=== PATIENT | male | born 1970 | race Two or more races ===

== ENCOUNTER 2024-05-21 04:14 | Inpatient (IN) | payer MEDICAID, OTHER ==
[2024-05-21] VITALS (8 sets, daily range): BP systolic 95–112; BP diastolic 50–68; PULSE 80–103; RESP 15–18; TEMP 98.2; O2SAT 87–95
[~2024-05-21] VITALS: Ht 157.5 cm; Wt 113.5 kg
--- NOTE | 2024-05-21 04:42 | ED.PDOC ---
GI ASSESSMENT HPI Comments 54-year-old male came to ER due to GI bleed. Patient has history of diabetes. Patient has been having epigastric abdominal pain for the past few days, and yesterday had an episode of melena. Patient woke up earlier today feeling nauseated, and started throwing up bright red blood, and he felt dizzy and light headed and he passed out in the bathroom floor. No prior history of GI bleed. Blood pressure is 58/25 mmHg Chief Complaint: GI bleed Time Seen by MD: 04:41 Reviewed Notes: Nurses Notes Allergies: Coded Allergies: NO KNOWN ALLERGIES (Unverified , 05/21/24) Home Meds Reported Medications Ergocalciferol (Vitamin D) 50,000 Unit Cap, 1 CAP PO QWEEKLY 05/21/24 Rosuvastatin Calcium (Rosuvastatin Calcium) 10 Mg Tab, 1 TAB PO 05/21/24 Information Source: Patient, Spouse Mode of Arrival: Wheelchair Timing: Hours Duration: Since onset Prehospital treatment: None Quality: Aching Vomitus: Bright Red Bood Stool: Black Severity: Moderate Recent: None Recent Hx of: Diabetes Pain Location: Epigastric Modifying Factors: Nothing Associated sign and symptoms: Nausea, Vomiting, Hematemesis, Melena, Abdominal Pain, Blood in Stool, Faintness Past Medical History PAST MEDICAL HISTORY: DM Surgical History: Denies all surgeries Family History Family History: Reviewed,noncontributory to illness Social History Smoker: Non-Smoker Alcohol: Denies ETOH Use Drugs: Denies Drug Use Lives In: Home Constitutional: denies: chills, diaphoresis, fatigue, fever, malaise, sweats, weakness, others EENTM: denies: blurred vision, double vision, ear bleeding, ear discharge, ear drainage, ear pain, ear ringing, eye pain, eye redness, hearing loss, mouth pain, mouth swelling, nasal discharge, nose bleeding, nose congestion, nose pain, photophobia, tearing, throat pain, throat swelling, voice changes, others Respiratory: denies: cough, hemoptysis, orthopnea, SOB at rest, shortness of breath, SOB with excertion, stridor, wheezing, others Cardiovascular: denies: chest pain, dizzy spells, diaphoresis, Dyspnea on exertion, edema, irregular heart beat, left arm pain, lightheadedness, palpitations, PND, syncope, others Gastrointestinal: reports: abdominal pain, hematemesis, melena, nausea, vomiting; denies: abdomen distended, blood streaked bowels, constipated, diarrhea, dysphagia, difficulty swallowing, poor appetite, poor fluid intake, rectal bleeding, rectal pain, others Genitourinary: denies: burning, dysuria, flank pain, frequency, hematuria, incontinence, penile discharge, penile sore, pain, testicle pain, testicle swelling, urgency, others Neurological: reports: dizziness, fainting; denies: headache, left sided numbness, left sided weakness, numbness, paresthesia, pre-existing deficit, right sided numbness, right sided weakness, seizure, speech problems, tingling, tremors, weakness, others Musculoskeletal: denies: back pain, gout, joint pain, joint swelling, muscle pain, muscle stiffness, neck pain, others Integumetry: denies: bruises, change in color, change in hair/nails, dryness, laceration, lesions, lumps, rash, wounds, others Allergic/Immunocompromised: denies: Difficulty Healing, Frequent Infections, Hives, Itching, others Hematologic/Lymphatic: denies: anemia, blood clots, easy bleeding, easy bruising, swollen glands, others Endocrine: denies: excessive hunger, excessive sweating, excessive thirst, excessive urination, flushing, intolerance to cold, intolerance to heat, unexplained weight gain, unexplained weight loss, others Psychiatric: denies: anxiety, bipolar disorder, depression, hopeless, panic disorder, schizophrenia, sleepless, suicidal, others Physical Exam General Appearance: No Apparent Distress, Normal HEENT: Normal ENT Inspection, Pharynx Normal, TMs Normal Neck: Full Range of Motion, Non-Tender, Normal, Normal Inspection Respiratory: Chest Non-Tender, Lungs Clear, No Accessory Muscle Use, No Respiratory Distress, Normal Breath Sounds Cardiovascular: No Edema, No JVD, No Murmur, No Gallop, Normal Peripheral Pulses, Regular Rate/Rhythm Breast Exam: Deferred Gastrointestinal: No Organomegaly, Non Tender, No Pulsatile Mass, Normal Bowel Sounds, Soft Genitalia: Deferred Pelvic: Deferred Rectal: Deferred Extremities: No calf tenderness, Normal capillary refill, Normal inspection, Normal range of motion, Non-tender, No pedal edema Musculoskeletal : Apperance: Normal Neurologic: Alert, inclusion special educator II-XII nml as Tested, No Motor Deficits, Normal Affect, Normal Mood, No Sensory Deficits Cerebellar Function: Normal Reflexes: Normal Skin: Dry, Normal Color, Warm Lymphatic: No Adenopathy Was a procedure done? Was a procedure done?: No GI differential Dx Differential Diagnosis: Diverticular disease, Gastritis/PUD, Gastroenteritis, GI hemorrhage, Pancreatitis, UTI, Urolithiasis, Electrolyte Imbalance, Hypovolemia, Anemia X-Ray, Labs, Meds, VS Vital Signs Date Time Temp Pulse Resp B/P (MAP) Pulse Ox O2 Delivery O2 Flow Rate FiO2 05/21/24 06:30 82 17 101/55 (70) 97 05/21/24 06:10 98.0 74 16 98/59 (72) 96 98.0 05/21/24 05:55 87/48 05/21/24 05:50 97.7 78 12 88/45 (59) 96 97.7 05/21/24 05:50 88/45 05/21/24 05:43 81/47 05/21/24 05:20 Room Air* 0 21 05/21/24 05:19 97.4 78 18 74/27 (43) 96 97.4 05/21/24 04:40 82 05/21/24 04:30 95.5 57 14 58/25 (36) 99 Lab Test 05/21/24 04:50 05/21/24 04:33 Range/Units White Blood Count 11.0 H 4.4-10.8 10^3/uL Red Blood Count 4.48 L 4.5-5.90 10^6/uL Hemoglobin 12.9 L 13.5-17.5 g/dL Hematocrit 38.8 L 41.0-53.0 % Mean Corpuscular Volume 86.6 80.0-100.0 fL Mean Corpuscular Hemoglobin 28.8 28.0-32.0 pg Mean Corpuscular Hemoglobin Concent 33.2 32.0-36.0 g/dL Red Cell Distribution Width 13.6 11.8-14.3 % Platelet Count 275 140-450 10^3/uL Mean Platelet Volume 7.7 6.9-10.8 fL Neutrophils (%) (Auto) 63.9 37.0-80.0 % Lymphocytes (%) (Auto) 29.0 10.0-50.0 % Monocytes (%) (Auto) 6.0 0.0-12.0 % Eosinophils (%) (Auto) 0.8 0.0-7.0 % Basophils (%) (Auto) 0.3 0.0-2.0 % Neutrophils # (Auto) 7.0 1.6-8.6 10 ^3/uL Lymphocytes # (Auto) 3.2 0.4-5.4 10 ^3/uL Monocytes # (Auto) 0.7 0-1.3 10 ^3/uL Eosinophils # (Auto) 0.1 0-0.8 10 ^3/uL Basophils # (Auto) 0 0-0.2 10 ^3/uL Nucleated Red Blood Cells 0.0 % Prothrombin Time 12.0 H 9.3-11.8 sec Prothrombin Time INR 1.14 0.9-1.15 Activated Partial Thromboplast Time 21.7 L 24.5-34.5 SEC Sodium Level 140 136-145 mmol/L Potassium Level 4.1 3.5-5.1 mmol/L Chloride Level 108 H 98-107 mmol/L Carbon Dioxide Level 24 20-31 mmol/L Anion Gap 8 5-15 Blood Urea Nitrogen 32 H 9-23 mg/dL Creatinine 1.07 0.700-1.30 mg/dL Glomerular Filtration Rate Calc 83 >90 mL/min BUN/Creatinine Ratio 29.9 H 10.0-20.0 Serum Glucose 221 H 74-106 mg/dL Hemoglobin A1c 5.5 <5.7 % A1C Calcium Level 9.4 8.7-10.4 mg/dL Total Bilirubin 0.6 0.2-1.0 mg/dL Aspartate Amino Transferase (AST) 11 L 13-40 U/L Alanine Aminotransferase (ALT) 24 7-40 U/L Alkaline Phosphatase 75 46-116 U/L Total Protein 6.4 5.7-8.2 g/dL Albumin 3.9 3.2-4.8 g/dL Lipase 30 12-53 U/L POC Glucose 193 H 70-106 mg/dl Current Medications Medications (Trade) Dose Ordered Sig/Herbert Route Start Time Stop Time Status Last Admin Sodium Chloride 1,000 ml @ 1,000 mls/hr Q1H ONCE IVB 05/21/24 04:45 05/21/24 05:44 DC 05/21/24 05:11 Ondansetron HCl (Zofran) 8 mg ONCE ONCE IV 05/21/24 04:45 05/21/24 04:46 DC 05/21/24 05:14 Pantoprazole Sodium (Protonix) 40 mg ONCE ONCE IV 05/21/24 04:45 05/21/24 04:46 DC 05/21/24 05:14 Sodium Chloride 1,000 ml @ 1,000 mls/hr Q1H ONCE IV 05/21/24 04:45 05/21/24 05:44 DC 05/21/24 05:11 Norepinephrine Bitartrate 250 ml @ 3.75 mls/hr Q24H IV 05/21/24 05:30 05/21/24 05:43 Time of 1ST Reevaluation: 04:36 Reevaluation 1ST: Unchanged Time of 2ND Reevaluation: 06:00 Reevaluation 2ND: Improved Patient Education/Counseling: Diagnosis, Treatment Family Education/Counseling: Diagnosis, Treatment Sepsis Sepsis Reasesment Focused Exam Sepsis focused exam: focus exam completed Departure 1 Departure Time of Disposition: 06:00 Impression: Primary Impression: GI bleed Additional Impression: Hypotension Disposition: ADMITTED INPATIENT Admit to: ICU Condition: Critical Critical Care Note Critical Care Time?: Yes (45 min-critical care time only) Critical care comment: Hypotension, GI bleed Total critical care time: Approximately 36 minutes Due to a high probability of clinically significant, life threatening deterioration, the patient required my highest level of preparedness to intervene emergently and I personally spent this critical care time directly and personally managing the patient. This critical care time included obtaining a history; examining the patient; pulse oximetry; ordering and review of studies; arranging urgent treatment with development of a management plan; evaluation of patient's response to treatment; frequent reassessment; and, discussions with other providers. This critical care time was performed to assess and manage the high probability of imminent, life-threatening deterioration that could result in multi-organ failure. It was exclusive of separately billable procedures and treating other patients. Stability Stability form required: No Heart Score Heart Score: Heart Score Response (Comments) Value History N/A 0 EKG N/A 0 Age N/A 0 Risk Factors N/A 0 Troponin N/A 0 Total 0 I personally scribed for DONIS MUÑOZ MD ([email or web address]) on 05/21/24 at 04:42. Electronically submitted by Aiden Mir ([email or web address] I personally scribed for DONIS MUÑOZ MD ([email or web address]) on 05/21/24 at 05:00. Electronically submitted by Aiden Mir ([email or web address]). DONIS MUÑOZ MD May 21, 2024 04:42
[2024-05-21] MEDS: SODIUM CHLORIDE 0.9% 1,000 ML IVB ONE (05:11)
[2024-05-21] MEDS: SODIUM CHLORIDE 0.9% 1,000 ML IV ONE (05:11)
[2024-05-21 05:13] LABS: Basophils # (auto) 0 10 ^3/uL (0-0.2); Basophils % (auto) 0.3 % (0.0-2.0); Eosinophils # (auto) 0.1 10 ^3/uL (0-0.8); Eosinophils % (auto) 0.8 % (0.0-7.0); Hematocrit 38.8 % (41.0-53.0); Hemoglobin 12.9 g/dL (13.5-17.5); Lymphocytes # (auto) 3.2 10 ^3/uL (0.4-5.4); Mean Corpuscular Hemoglobin 28.8 pg (28.0-32.0); Mean Corpuscular Hgb Conc. 33.2 g/dL (32.0-36.0); Mean Corpuscular Volume 86.6 fL (80.0-100.0); Monocytes # (auto) 0.7 10 ^3/uL (0-1.3); Neutrophils % (auto) 63.9 % (37.0-80.0); Platelet Count (auto) 275 10^3/uL (140-450); Red Blood Cells 4.48 10^6/uL (4.5-5.90); Red Cell Distribution Width 13.6 % (11.8-14.3)
[2024-05-21] MEDS: ONDANSETRON HCL 4 MG/2 ML VIAL IV ONE (05:14)
[2024-05-21] MEDS: PANTOPRAZOLE 40 MG/10 ML VIAL INJ IV ONE (05:14)
[2024-05-21 05:25] LABS: Alanine Aminotransferase 24 U/L (7-40); Albumin 3.9 g/dL (3.2-4.8); Alkaline Phosphatase 75 U/L (46-116); Anion Gap 8 (5-15); BUN/Creatinine Ratio 29.9 (10.0-20.0); Bilirubin, Total 0.6 mg/dL (0.2-1.0); Calcium 9.4 mg/dL (8.7-10.4); Carbon Dioxide 24 mmol/L (20-31); INR 1.14 (0.9-1.15); Lipase 30 U/L (12-53); Partial Thromboplastin Time 21.7 SEC (24.5-34.5); Potassium 4.1 mmol/L (3.5-5.1); Sodium 140 mmol/L (136-145); Total Protein 6.4 g/dL (5.7-8.2)
[2024-05-21] MEDS: NOREPINEPHRINE 8 MG/250ML KIT 250 ML IV SCH (05:43)
[2024-05-21] MEDS: IOHEXOL 300 MG/ML 100ML BOTTLE IJ ONE (05:44)
[2024-05-21 06:00] LABS: Blood Urea Nitrogen 32 mg/dL (9-23); Chloride 108 mmol/L (98-107); Glucose 221 mg/dL (74-106)
[2024-05-21 06:16] LABS: Aspartate Aminotransferase 11 U/L (13-40)
[2024-05-21] MEDS ORDERED: DEXTROSE (50%) 50ML SYRG IV PRN (06:45)
[2024-05-21] MEDS ORDERED: ONDANSETRON HCL 4 MG/2 ML VIAL IV PRN (06:45)
[2024-05-21] MEDS ORDERED: MORPHINE SULFATE INJ 2 MG/ml SYRG IV PRN (06:45)
[2024-05-21] MEDS ORDERED: HYDROcodone-ACET 5/325MG TAB PO PRN (06:45)
[2024-05-21] MEDS: SODIUM CHLORIDE 0.9% 1,000 ML IV SCH (06:55)
--- NOTE | 2024-05-21 07:03 | DVH ---
Exam: CT CT AB PEL WITH IV CON ONLY History: abd pain, vomiting blood Comparison Study: None available at time of dictation. TECHNIQUE: A digital it support engineer image was obtained. During the uneventful, intravenous administration of c ontrast material, multislice data acquisition was obtained through the abdomen and pelvis. The data s et was subsequently reconstructed into axial images. Images were reviewed on a work station using a c ombination of axial and multiplanar using a variety of window levels and settings. RADIATION DOSE: DLP 26.0 mGy.cm; CTDI 1652.5 mGy. FINDINGS: Lung Bases: There is a spiculated nodule in the right lower lung measuring 8 mm ( series 3 image ). There is a nodular opacity adjacent to the fissure measuring 5 mm May may represent a intrapulmonary lymph node. There is a pulmonary nodule in the right lower lung measuring 4 mm ( series 3, image 19). There are multiple nodules in the left lower lung measuring up to 9 mm ( series 3, image 34, 30 ). B ibasilar atelectasis. Liver: The liver is normal in size. No focal lesions. Normal hepatic vascular enhancement. Gallbladder and Biliary Tree: Unremarkable Spleen: Unremarkable Pancreas: The pancreas is normal in appearance without focal lesions or abnormal enhancement. Adrenal Glands: Unremarkable Kidneys: There is a peripherally calcified low-density lesion in the right kidney, lower pole measuri ng 1.5 cm. Bladder: Unremarkable Bowel: Gastric distention with debris. Focal wall thickening of the distal stomach. Small bowel and c olon are normal in caliber and distribution. The appendix is not visualized; however, no secondary f indings of acute appendicitis identified. Ascites: Absent Lymphadenopathy: No mesenteric, retroperitoneal or periportal lymphadenopathy. Abdominal Wall and Mesentery: Unremarkable. Vasculature: The visualized abdominal aorta is normal in size and caliber. Abdominal and pelvic vess els demonstrate normal enhancement. Pelvic Organs: Unremarkable Musculoskeletal: No aggressive focal bony lesions, acute fractures or dislocation. Soft tissues: Unremarkable. IMPRESSION: Gastric distention with debris. Focal wall thickening of the distal stomach. Recommend further eval uation with endoscopy. Multiple nonspecific bilateral pulmonary nodules measuring up to 8 mm in the right lower lung and 9 m m in the left lower lung. Recommend further evaluation with dedicated CT chest. All CT scans at this medical facility are performed using dose modulation techniques as appropriate t o a performed exam including the following: Automated exposure control was utilized; adjustment of th e MA and/or KV according to patient size; and use of iterative reconstruction technique.
--- NOTE | 2024-05-21 07:38 | DVHHP2 ---
History of Present Illness Reason for Visit: Epigastric, abdominal pain, weakness, hypotensive, and hematemesis History of Present Illness Talon Roland is a 54-year-old male with past medical history of diabetes who presents to the ED today for epigastric, abdominal pain, hematemesis x3, weakness, and hypotension x1 day. Patient reports that his epigastric pain is pressure-like intermittent and 7/10. Patient reports that he has been going to see his primary care physician for the last 4 years about his abdominal discomfort and has had an EGD labs and workup with no abnormal results. Patient reports that this morning he was walking to the restroom sat on the toilet and noticed that there was dark black stool coming out he suddenly felt dizzy and lightheaded. He states that he lost consciousness fell and hit his head then came to called out for his and his daughter, which then his daughter brought him to the ED. patient states that he is compliant with all his medications he also states that he is borderline diabetic. Patient reports that he does not feel like there is a tear in his abdomen. Patient denies smoking, drinking, illicit drug use, chest pain, shortness of breath, fever, chills, nausea, vomiting, and diarrhea. Endocrine: Diabetes Past Surgical History: None Family History: None Smoke: No ALCOHOL: none Drugs: None Lives: with Family Domestic Violence: Neg Review of Systems Constitutional: Yes: Weakness; No: Fever, Chills, Sweats, Malaise, Other Eyes: No: Pain, Vision change, Conjunctivae inflammation, Eyelid inflammation, Other, Redness ENT: No: Ear pain, Ear discharge, Nose pain, Nose discharge, Nose congestion, Mouth pain, Mouth swelling, Throat pain, Throat swelling, Other Respiratory: No: Cough, Dry, Shortness of breath, SOB with excertion, Wheezing, Hemoptysis, Pleuritic Pain, Sputum, Wheezing, Other Cardiovascular: Lt Headedness; No: Chest Pain, Palpitations, Orthopnea, Paroxysmal Noc. Dyspnea, Edema, Other Gastrointestinal: Abdominal Pain, Melena; No: Nausea, Vomiting, Diarrhea, Constipation, Hematochezia, Other Genitourinary: No Dysuria, No Frequency, No Incontinence, No Hematuria, No Retention, No Other Musculoskeletal: No: other, neck pain, shoulder pain, arm pain, back pain, hand pain, leg pain, foot pain Skin: No: Rash, Lesions, Jaundice, Bruising, Other Allergies: Coded Allergies: NO KNOWN ALLERGIES (Unverified , 05/21/24) Medications Current Medications Medications Dose Ordered Sig/Herbert Route Start Time Stop Time Status Last Admin Dose Admin Norepinephrine Bitartrate 250 ml @ 3.75 mls/hr Q24H IV 05/21/24 05:30 05/21/24 05:43 3.75 MLS/HR Sodium Chloride 1,000 ml @ 100 mls/hr Q10H IV 05/21/24 06:45 Acetaminophen/ Hydrocodone Bitart 1 tab Q4HP PRN PO 05/21/24 06:45 Ondansetron HCl 4 mg Q4HP PRN IV 05/21/24 06:45 Acetaminophen 650 mg Q6HP PRN PO 05/21/24 06:45 Morphine Sulfate 2 mg Q4HPRN PRN IV 05/21/24 06:45 Pantoprazole Sodium 40 mg BID IV 05/21/24 10:00 Diagnostic Test (Pha) 1 strip Q6HR 05/21/24 12:00 Insulin Human Regular Q6HR SC 05/21/24 12:00 Dextrose 50 ml UD PRN IV 05/21/24 06:45 Exam Vital Signs Vital Signs Date Time Temp Pulse Resp B/P (MAP) Pulse Ox O2 Delivery O2 Flow Rate FiO2 05/21/24 06:10 98.0 74 16 98/59 (72) 96 98.0 05/21/24 05:20 Room Air* 0 21 General Appearance: Alert, Oriented X3, Cooperative, No acute distress HEENT: Atraumatic, PERRLA, EOMI, Mucous membr. moist/pink Respiratory: Clear to auscultation, Normal air movement Cardiovascular: Normal S1, Normal S2, No murmurs Abdominal: Soft, No hepatospenomegaly, No masses Extremities: No clubbing, No cyanosis, No edema, Normal pulses, No tenderness/swelling Skin: No rashes, No breakdown, No significant lesion Neuro: Normal gait, Normal speech, Strength at 5/5 X4 ext, Normal tone, Sen sation intact Psych/Mental Status: Mental status NL, Mood NL Labs/Xrays Labs Test 05/21/24 04:50 05/21/24 04:33 Range/Units White Blood Count 11.0 H 4.4-10.8 10^3/uL Red Blood Count 4.48 L 4.5-5.90 10^6/uL Hemoglobin 12.9 L 13.5-17.5 g/dL Hematocrit 38.8 L 41.0-53.0 % Mean Corpuscular Volume 86.6 80.0-100.0 fL Mean Corpuscular Hemoglobin 28.8 28.0-32.0 pg Mean Corpuscular Hemoglobin Concent 33.2 32.0-36.0 g/dL Red Cell Distribution Width 13.6 11.8-14.3 % Platelet Count 275 140-450 10^3/uL Mean Platelet Volume 7.7 6.9-10.8 fL Neutrophils (%) (Auto) 63.9 37.0-80.0 % Lymphocytes (%) (Auto) 29.0 10.0-50.0 % Monocytes (%) (Auto) 6.0 0.0-12.0 % Eosinophils (%) (Auto) 0.8 0.0-7.0 % Basophils (%) (Auto) 0.3 0.0-2.0 % Neutrophils # (Auto) 7.0 1.6-8.6 10 ^3/uL Lymphocytes # (Auto) 3.2 0.4-5.4 10 ^3/uL Monocytes # (Auto) 0.7 0-1.3 10 ^3/uL Eosinophils # (Auto) 0.1 0-0.8 10 ^3/uL Basophils # (Auto) 0 0-0.2 10 ^3/uL Nucleated Red Blood Cells 0.0 % Prothrombin Time 12.0 H 9.3-11.8 sec Prothrombin Time INR 1.14 0.9-1.15 Activated Partial Thromboplast Time 21.7 L 24.5-34.5 SEC Sodium Level 140 136-145 mmol/L Potassium Level 4.1 3.5-5.1 mmol/L Chloride Level 108 H 98-107 mmol/L Carbon Dioxide Level 24 20-31 mmol/L Anion Gap 8 5-15 Blood Urea Nitrogen 32 H 9-23 mg/dL Creatinine 1.07 0.700-1.30 mg/dL Glomerular Filtration Rate Calc 83 >90 mL/min BUN/Creatinine Ratio 29.9 H 10.0-20.0 Serum Glucose 221 H 74-106 mg/dL Calcium Level 9.4 8.7-10.4 mg/dL Total Bilirubin 0.6 0.2-1.0 mg/dL Aspartate Amino Transferase (AST) 11 L 13-40 U/L Alanine Aminotransferase (ALT) 24 7-40 U/L Alkaline Phosphatase 75 46-116 U/L Total Protein 6.4 5.7-8.2 g/dL Albumin 3.9 3.2-4.8 g/dL Lipase 30 12-53 U/L POC Glucose 193 H 70-106 mg/dl Exam: CT CT AB PEL WITH IV CON ONLY History: abd pain, vomiting blood FINDINGS: Lung Bases: There is a spiculated nodule in the right lower lung measuring 8 mm ( series 3 image ). There is a nodular opacity adjacent to the fissure measuring 5 mm May may represent a intrapulmonary lymph node. There is a pulmonary nodule in the right lower lung measuring 4 mm ( series 3, image 19). There are multiple nodules in the left lower lung measuring up to 9 mm ( series 3, image 34, 30 ). Bibasilar atelectasis. Liver: The liver is normal in size. No focal lesions. Normal hepatic vascular enhancement. Gallbladder and Biliary Tree: Unremarkable Spleen: Unremarkable Pancreas: The pancreas is normal in appearance without focal lesions or abnormal enhancement. Adrenal Glands: Unremarkable Kidneys: There is a peripherally calcified low-density lesion in the right kidney, lower pole measuring 1.5 cm. Bladder: Unremarkable Bowel: Gastric distention with debris. Focal wall thickening of the distal stomach. Small bowel and colon are normal in caliber and distribution. The appendix is not visualized; however, no secondary findings of acute appendicitis identified. Ascites: Absent Lymphadenopathy: No mesenteric, retroperitoneal or periportal lymphadenopathy. Abdominal Wall and Mesentery: Unremarkable. Vasculature: The visualized abdominal aorta is normal in size and caliber. Abdominal and pelvic vessels demonstrate normal enhancement. Pelvic Organs: Unremarkable Musculoskeletal: No aggressive focal bony lesions, acute fractures or dislocation. Soft tissues: Unremarkable. IMPRESSION: Gastric distention with debris. Focal wall thickening of the distal stomach. Recommend further evaluation with endoscopy. Multiple nonspecific bilateral pulmonary nodules measuring up to 8 mm in the right lower lung and 9 mm in the left lower lung. Recommend further evaluation with dedicated CT chest. Assessment/Plan Assessment/Plan Assessment/Plan: Suspected GIB Leukocytosis transfuse prbc if Hgb <7.0 GI cx labs ekg antiemetics am labs ua protonix ct a/p pt/ptt lipase pain mgmt on pressor likely due to hypovolemic shock IV Abx - flagyl and levaquin CT head Stool occult blood DM HgbA1C ISS and accuchecks Multiple nonspecific bilateral pulmonary nodules measuring up to 8 mm in the right lower lung and 9 mm in the left lower lung F/u outpatient with pcp FEN/PPX IVf NPO hold dvt ppx, patient bleeding PUD ppx -protonix Discussed plan of care with patient and nurse Home medications reconciled Admit to ICU Plan discussed with: Patient, Daughter My Orders Orders - BRAD CURRY Procedure Category Date Status Time * Gi Dvh [employer] CONS 05/21/24 Transmitted 06:36 Allergies EVAN 05/21/24 In Process 06:36 Code Status CODE 05/21/24 Transmitted 06:36 Sodium Chloride 0.9% PHA 05/21/24 In Process 06:45 Hydrocodone-Acet PHA 05/21/24 In Process 5/325mg Tab (Baxter 06:45 Ondansetron Hcl PHA 05/21/24 In Process (Zofran) 06:45 Complete Blood Count LAB 05/22/24 Verified 04:00 Comprehensive LAB 05/22/24 Verified Metabolic Panel 04:00 Npo (Nothing By DIET 05/21/24 Transmitted Mouth) Diet Breakfast Acetaminophen Tablet PHA 05/21/24 In Process (Tylenol Tablet) 06:45 Morphine Sulfate PHA 05/21/24 In Process Injection 06:45 Pantoprazole PHA 05/21/24 In Process (Protonix) 10:00 Hemoglobin A1c LAB 05/21/24 In Process 06:36 Glucose Blood PHA 05/21/24 In Process (Accu-Chek Comfort 12:00 Insulin R (Human) PHA 05/21/24 In Process (Insulin R) 12:00 Dextrose 50% Syringe PHA 05/21/24 In Process 06:45 Admit ADMIT 05/21/24 Transmitted 06:40 Date of Service: May 21, 2024 Billing Provider: BRAD CURRY Common Visit Codes: [id number] INP/OBS CARE (HIGH) BRAD CURRY May 21, 2024 07:38
[2024-05-21] MEDS ORDERED: ROSU10TA64 PO (07:39)
[2024-05-21] MEDS ORDERED: ERGO1CAP12 PO (07:39)
[2024-05-21] MEDS: metroNIDAZOLE 500MG/100ML 100 ML IV ONE (08:58)
[2024-05-21] MEDS ORDERED: PANTOPRAZOLE 40 MG/10 ML VIAL INJ IV SCH (10:00)
--- NOTE | 2024-05-21 10:35 | DVH ---
EXAM: CT HEAD WITHOUT CONTRAST INDICATION: r/o head trauma TECHNIQUE: CT of the head without intravenous contrast. Radiation dose : 1. Head: CT Dose: CTDI volume is 62.54 mGy. Dose-length product is 1002.39 mGy*cm The dose indicators for CT are the volume computed tomography (CT) dose index (CTDIvol) and the dose length product (DLP), and are measured in units of mGy and mGy-cm, respectively. These indicators are not patient dose, but values generated from the CT scanner acquisition factors. The report includes radiation exposure data for exposures received during this examination. COMPARISON: None FINDINGS: There is no evidence of acute intracranial hemorrhage, extra-axial collection, mass effect, midline s hift, herniation or hydrocephalus. The ventricles, sulci and cisterns are age appropriate. The ordoñez-white differentiation is intact. Partially empty sella. Patchy periventricular and subcortical white matter hypoattenuation is nonspecific but may be related to small vessel ischemic disease. The visualized paranasal sinuses and mastoid air cells are clear. The surrounding soft tissues and osseous structures are unremarkable. IMPRESSION: 1. No acute intracranial abnormality. Radiation optimization: All CT scans at this facility use at least one of these dose optimization darian hniques: Automated exposure control mA and/or kV adjustment per patient size (includes targeted exams where dose is matched to clinical indication) or iterative reconstruction.
[2024-05-21] MEDS: PANTOPRAZOLE 40 MG/10 ML VIAL INJ IV SCH (11:29)
[2024-05-21] MEDS: levoFLOXacin 750MG 150 ML IV SCH (11:29)
[2024-05-21] MEDS: ACCU-CHEK COMFORT CURVE STRIP VI SCH (12:00)
[2024-05-21] MEDS: InsuLIN REG 1unit/0.01ml Soln (100units/ml) SC SCH (13:38)
[2024-05-21 16:32] LABS: Hematocrit 35.5 % (41.0-53.0); Hemoglobin 11.8 g/dL (13.5-17.5)
[2024-05-21] MEDS: metroNIDAZOLE 500MG/100ML 100 ML IV SCH (16:56)
[2024-05-21] MEDS: LACTATED RINGER'S 1,000 ML IV ONE (18:00)
--- NOTE | 2024-05-21 18:16 | DVHPN2 ---
Subjective Update 05/21 patient admitted today this a.m.. Still on levo. Pressure is improving. Patient is very hesitant on getting a central line. We will try to wean off levo and give more fluids. Still having dark melanotic stools. Reviewed: H&P Changes from previous H/P or p: No Changes General: Per HPI Objective Vitals Vital Signs Date Time Temp Pulse Resp B/P (MAP) Pulse Ox O2 Delivery O2 Flow Rate FiO2 05/21/24 17:55 102/59 05/21/24 17:45 96 15 91 05/21/24 08:00 98.2 98.2 05/21/24 05:20 Room Air* 0 21 Intake/Output Intake and Output 05/21/24 07:00 Intake Total 2000 ml Balance 2000 ml Intake IV Total 2000 ml Exam GEN: Healthy appearing, well-developed, NAD. Obese patient individual HEENT: NC/AT; MMM. CV: RRR, no m/r/g. LUNGS: CTAB, no w/r/c. ABD: Soft, NT/ND, NBS, no masses or organomegaly. EXT: skin Warm, well perfused. no rashes. No clubbing, cyanosis, or edema. NEURO: Ambulating with no limitations. No focal deficits. Medications Current Medications Medications Dose Ordered Sig/Herbert Route Start Time Stop Time Status Last Admin Dose Admin Norepinephrine Bitartrate 250 ml @ 3.75 mls/hr Q24H IV 05/21/24 05:30 05/21/24 05:43 3.75 MLS/HR Sodium Chloride 1,000 ml @ 100 mls/hr Q10H IV 05/21/24 06:45 05/21/24 16:52 100 MLS/HR Acetaminophen/ Hydrocodone Bitart 1 tab Q4HP PRN PO 05/21/24 06:45 Ondansetron HCl 4 mg Q4HP PRN IV 05/21/24 06:45 Acetaminophen 650 mg Q6HP PRN PO 05/21/24 06:45 Morphine Sulfate 2 mg Q4HPRN PRN IV 05/21/24 06:45 Diagnostic Test (Pha) 1 strip Q6HR 05/21/24 12:00 05/21/24 12:00 1 STRIP Insulin Human Regular Q6HR SC 05/21/24 12:00 05/21/24 13:38 2 UNITS Dextrose 50 ml UD PRN IV 05/21/24 06:45 Metronidazole 100 ml @ 100 mls/hr Q8H IV 05/21/24 16:00 05/21/24 16:56 100 MLS/HR Levofloxacin/ Dextrose 150 ml @ 100 mls/hr DAILY IV 05/21/24 10:00 05/21/24 11:29 100 MLS/HR Pantoprazole Sodium 40 mg Q12HR IV 05/21/24 10:00 05/21/24 11:29 40 MG Laboratory Results Laboratory Tests 05/21/24 04:50 05/21/24 15:52 Chemistry Test 05/21/24 04:50 Albumin 3.9 g/dL (3.2-4.8) Calcium Level 9.4 mg/dL (8.7-10.4) Total Protein 6.4 g/dL (5.7-8.2) Coagulation Test 05/21/24 04:50 Prothrombin Time 12.0 sec (9.3-11.8) H Prothrombin Time INR 1.14 (0.9-1.15) Activated Partial Thromboplast Time 21.7 SEC (24.5-34.5) L Lipid panel Test 05/21/24 04:50 Lipase 30 U/L (12-53) LFT Test 05/21/24 04:50 Alanine Aminotransferase (ALT) 24 U/L (7-40) Alkaline Phosphatase 75 U/L (46-116) Aspartate Amino Transferase (AST) 11 U/L (13-40) L Total Bilirubin 0.6 mg/dL (0.2-1.0) HgA1c, TSH Test 05/21/24 04:50 Hemoglobin A1c 5.5 % A1C (<5.7) Labs and/or images reviewed: Labs reviewed by me, Image(s) reviewed by me Assessment/Plan Assessment/Plan Update 05/21 patient admitted today this a.m.. Still on levo. Pressure is improving. Patient is very hesitant on getting a central line. We will try to wean off levo and give more fluids. Still having dark melanotic stools. # septic versus hemorrhagic shock possible - on Levophed 4-6 mg per minute # melena, upper GI bleed on PPI b.i.d. IV, type and screen, large-bore IVs x2, NPO midnight, GI consult #leukocytosis-source could likely be GI we will continue with antibiotics IV #pulmonary nodules on CT abdomen have picked up some pulmonary nodules, can be worked up outpatient # syncopal episode-likely from GI hemorrhage and hypotension-CT head negative for any intracranial hemorrhage # type 2 diabetes mild scale SSI and Accu-Cheks a.c. HS Diet clear liquid diet NPO midnight GI prophylaxis PPI IV b.i.d. DVT prophylaxis-SCDs only, no chemical DVT prophylaxis due to bleed Med tele Full code Plan discussed with: Patient My Orders Orders - DARREL KNIGHT MD Procedure Category Date Status Time Drug Screen LAB 05/21/24 Logged 10:45 Lactated Ringers Lr PHA 05/21/24 Verified 18:00 Date of Service: May 21, 2024 Billing Provider: DARREL KNIGHT MD Common Visit Codes: [id number] INP/OBS CARE(HIGH) DARREL KNIGHT MD May 21, 2024 18:16
--- NOTE | 2024-05-21 21:17 | DVHINCON2 ---
Date of service: May 21, 2024 Referring Physician LANDON Brown Reason for Consultation GI bleed History of Present Illness Talon Roland is a 54-year-old male with past medical history of diabetes who presents to the ED today for epigastric, abdominal pain, hematemesis x3, weakness, and hypotension x1 day. Patient reports that his epigastric pain is pressure-like intermittent and 7/10. Patient reports that he has been going to see his primary care physician for the last 4 years about his abdominal discomfort and has had an EGD 1.5 yrs ago that was negative ;labs and workup with no abnormal results. Patient reports that this morning he was walking to the restroom sat on the toilet and noticed that there was dark black stool coming out he suddenly felt dizzy and lightheaded. He states that he lost con sciousness fell and hit his head then came to called out for his and his daughter, which then his daughter brought him to the ED. patient states that he is compliant with all his medications he also states that he is borderline diabetic. Patient denies smoking, drinking, illicit drug use, chest pain, shortness of breath, fever, chills, nausea, vomiting, and diarrhea. He denies any aspirin or NSAID use. Patient received 1 unit PRBC in the ER because of hypotension which is now resolved Past Medical History Endocrine: Diabetes Morbid obesity Past Surgical History Negative Allergies: Coded Allergies: NO KNOWN ALLERGIES (Unverified , 05/21/24) Home Meds Reported Medications Ergocalciferol (Vitamin D) 50,000 Unit Cap, 1 CAP PO QWEEKLY 05/21/24 Rosuvastatin Calcium (Rosuvastatin Calcium) 10 Mg Tab, 1 TAB PO 05/21/24 Current Medications Current Medications Medications (Trade) Dose Ordered Sig/Herbert Route PRN Reason Start Time Stop Time Status Last Admin Norepinephrine Bitartrate 250 ml @ 3.75 mls/hr Q24H IV 05/21/24 05:30 05/21/24 05:43 Sodium Chloride 1,000 ml @ 100 mls/hr Q10H IV 05/21/24 06:45 05/21/24 16:52 Acetaminophen/ Hydrocodone Bitart (Pegram 5/325MG Tab) 1 tab Q4HP PRN PO MODERATE PAIN (4-6 PAIN SCALE) 05/21/24 06:45 Ondansetron HCl (Zofran) 4 mg Q4HP PRN IV NAUSEA / VOMITING 05/21/24 06:45 Acetaminophen (Tylenol Tablet) 650 mg Q6HP PRN PO PAIN SCALE 1-3 OR TEMP>100.4 05/21/24 06:45 Morphine Sulfate 2 mg Q4HPRN PRN IV SEVERE PAIN (7-10 PAIN SCALE) 05/21/24 06:45 Pantoprazole Sodium (Protonix) 40 mg BID IV 05/21/24 10:00 05/21/24 08:39 DC Diagnostic Test (Pha) (Accu-Chek Comfort Curve T) 1 strip Q6HR 05/21/24 12:00 05/21/24 18:00 Insulin Human Regular (InsuLIN R) Q6HR SC 05/21/24 12:00 05/21/24 13:38 Dextrose 50 ml UD PRN IV Blood Sugar LESS THAN 60 05/21/24 06:45 Metronidazole 100 ml @ 100 mls/hr Q8H IV 05/21/24 16:00 05/21/24 16:56 Levofloxacin/ Dextrose 150 ml @ 100 mls/hr DAILY IV 05/21/24 10:00 05/21/24 11:29 Pantoprazole Sodium (Protonix) 40 mg Q12HR IV 05/21/24 10:00 05/21/24 11:29 Vital Signs Vital Signs Date Time Temp Pulse Resp B/P (MAP) Pulse Ox O2 Delivery O2 Flow Rate FiO2 05/21/24 20:00 88 05/21/24 19:00 16 90/53 (65) 93 05/21/24 08:00 98.2 98.2 05/21/24 05:20 Room Air* 0 21 Physical Exam GEN: Healthy appearing, well-developed, NAD. Obese patient individual HEENT: NC/AT; MMM. CV: RRR, no m/r/g. LUNGS: CTAB, no w/r/c. ABD: Soft, NT/ND, NBS, no masses or organomegaly. EXT: skin Warm, well perfused. no rashes. No clubbing, cyanosis, or edema. NEURO: Ambulating with no limitations. No focal deficits. Labs/Diagnostic Data Labs Test 05/21/24 19:52 05/21/24 18:39 05/21/24 15:52 05/21/24 10:54 Range/Units POC Glucose 119 H 70-106 mg/dl Hemoglobin 11.8 L 13.5-17.5 g/dL Hematocrit 35.5 L 41.0-53.0 % Lactic Acid Level 1.6 0.4-2.0 mmol/L Test 05/21/24 04:50 Range/Units White Blood Count 11.0 H 4.4-10.8 10^3/uL Red Blood Count 4.48 L 4.5-5.90 10^6/uL Mean Corpuscular Volume 86.6 80.0-100.0 fL Mean Corpuscular Hemoglobin 28.8 28.0-32.0 pg Mean Corpuscular Hemoglobin Concent 33.2 32.0-36.0 g/dL Red Cell Distribution Width 13.6 11.8-14.3 % Platelet Count 275 140-450 10^3/uL Mean Platelet Volume 7.7 6.9-10.8 fL Neutrophils (%) (Auto) 63.9 37.0-80.0 % Lymphocytes (%) (Auto) 29.0 10.0-50.0 % Monocytes (%) (Auto) 6.0 0.0-12.0 % Eosinophils (%) (Auto) 0.8 0.0-7.0 % Basophils (%) (Auto) 0.3 0.0-2.0 % Neutrophils # (Auto) 7.0 1.6-8.6 10 ^3/uL Lymphocytes # (Auto) 3.2 0.4-5.4 10 ^3/uL Monocytes # (Auto) 0.7 0-1.3 10 ^3/uL Eosinophils # (Auto) 0.1 0-0.8 10 ^3/uL Basophils # (Auto) 0 0-0.2 10 ^3/uL Nucleated Red Blood Cells 0.0 % Prothrombin Time 12.0 H 9.3-11.8 sec Prothrombin Time INR 1.14 0.9-1.15 Activated Partial Thromboplast Time 21.7 L 24.5-34.5 SEC Sodium Level 140 136-145 mmol/L Potassium Level 4.1 3.5-5.1 mmol/L Chloride Level 108 H 98-107 mmol/L Carbon Dioxide Level 24 20-31 mmol/L Anion Gap 8 5-15 Blood Urea Nitrogen 32 H 9-23 mg/dL Creatinine 1.07 0.700-1.30 mg/dL Glomerular Filtration Rate Calc 83 >90 mL/min BUN/Creatinine Ratio 29.9 H 10.0-20.0 Serum Glucose 221 H 74-106 mg/dL Hemoglobin A1c 5.5 <5.7 % A1C Calcium Level 9.4 8.7-10.4 mg/dL Total Bilirubin 0.6 0.2-1.0 mg/dL Aspartate Amino Transferase (AST) 11 L 13-40 U/L Alanine Aminotransferase (ALT) 24 7-40 U/L Alkaline Phosphatase 75 46-116 U/L Total Protein 6.4 5.7-8.2 g/dL Albumin 3.9 3.2-4.8 g/dL Lipase 30 12-53 U/L Abdominal CT Scan IMPRESSION: Gastric distention with debris. Focal wall thickening of the distal stomach. Recommend further evaluation with endoscopy. Multiple nonspecific bilateral pulmonary nodules measuring up to 8 mm in the right lower lung and 9 mm in the left lower lung. Recommend further evaluation with dedicated CT chest. Head CT negative Problems(with codes): (1) Abnormal finding on GI tract imaging (2) Near syncope (3) Hematemesis (4) Melena (5) GI bleed (6) Hypotension Plan/Recommendation Plan Continue to monitor labs IV Protonix 40 mg q.12 hours Carafate 1 g p.o. twice a day Stool for occult blood Clear liquid diet Possible endoscopy once medically stabilized on 05/23/24 Consider cardiac evaluation or 2D echo due to morbid obesity and near-syncope Plan discussed with: Patient, Spouse, Other (ER Nurse) MERYL DURAN MD May 21, 2024 21:17
[2024-05-22 06:04] LABS: Basophils # (auto) 0 10 ^3/uL (0-0.2); Basophils % (auto) 0.2 % (0.0-2.0); Eosinophils # (auto) 0 10 ^3/uL (0-0.8); Eosinophils % (auto) 0.3 % (0.0-7.0); Hematocrit 33.5 % (41.0-53.0); Hemoglobin 11.4 g/dL (13.5-17.5); Lymphocytes # (auto) 3.1 10 ^3/uL (0.4-5.4); Lymphocytes % (auto) 33.7 % (10.0-50.0); Mean Corpuscular Hemoglobin 28.6 pg (28.0-32.0); Mean Corpuscular Hgb Conc. 34.1 g/dL (32.0-36.0); Mean Corpuscular Volume 83.8 fL (80.0-100.0); Monocytes # (auto) 0.7 10 ^3/uL (0-1.3); Monocytes % (auto) 7.4 % (0.0-12.0); Neutrophils # (auto) 5.4 10 ^3/uL (1.6-8.6); Neutrophils % (auto) 58.4 % (37.0-80.0); Platelet Count (auto) 240 10^3/uL (140-450); Red Blood Cells 3.99 10^6/uL (4.5-5.90); Red Cell Distribution Width 14.6 % (11.8-14.3); White Blood Cell 9.2 10^3/uL (4.4-10.8)
[2024-05-22 06:32] LABS: Alanine Aminotransferase 18 U/L (7-40); Albumin 3.8 g/dL (3.2-4.8); Alkaline Phosphatase 52 U/L (46-116); Anion Gap 8 (5-15); BUN/Creatinine Ratio 24.7 (10.0-20.0); Bilirubin, Total 0.6 mg/dL (0.2-1.0); Blood Urea Nitrogen 19 mg/dL (9-23); Calcium 9.3 mg/dL (8.7-10.4); Carbon Dioxide 24 mmol/L (20-31); Potassium 3.6 mmol/L (3.5-5.1); Sodium 142 mmol/L (136-145); Total Protein 6.1 g/dL (5.7-8.2)
[2024-05-22 06:34] LABS: Aspartate Aminotransferase 13 U/L (13-40); Chloride 110 mmol/L (98-107); Glucose 133 mg/dL (74-106)
[2024-05-22 07:15] VITALS: PULSE 82; RESP 14; O2SAT 94
[2024-05-22] MEDS: LACTATED RINGER'S 1,000 ML IV ONE (09:27)
[2024-05-22] MEDS: MIDODRINE HCL 10 MG TAB PO ONE (09:32)
[2024-05-22 09:56] LABS: Urine Bacteria None Seen /hpf (None Seen)
[2024-05-22 10:40] LABS: Urine Blood Negative /uL (Negative); Urine Clarity Clear (Clear); Urine Color Light-Yellow (Yellow); Urine Protein, UAD Negative (Negative); Urine Specific Gravity 1.022 (1.001-1.035); Urine Squamous Epithelial Cell None Seen /hpf (<5); Urine Urobilinogen Normal (Negative); Urine WBC 1 /hpf (0 - 3)
[2024-05-22 10:57] LABS: Opiate Scree,Urine Neg (NEGATIVE)
[2024-05-22 11:01] LABS: Amphetamine Screen, Urine Neg (NEGATIVE); Barbiturate Scree,Urine Neg (NEGATIVE); Benzodiazephine Screen, Urine Neg (NEGATIVE); Cannabinoid Screen, Urine Neg (NEGATIVE); Cocaine Screen, Urine Neg (NEGATIVE); Phencyclidine Screen, Urine Neg (NEGATIVE)
[2024-05-22] MEDS: MIDODRINE HCL 10 MG TAB PO SCH (11:46)
--- NOTE | 2024-05-22 13:30 | DVHPN2 ---
Progress Note - Dictate Date Seen: May 22, 2024 Medical Necessity Reason Pt with a Central, PICC or Fol: No Subjective No new complaints No further episodes of GI bleeding Tolerating clear liquid diet H&H is fairly stable with a slight drift down to 11.4 Stool for occult blood was negative vital signs Vital Sign Date Time Temp Pulse Resp B/P (MAP) Pulse Ox O2 Delivery O2 Flow Rate FiO2 05/22/24 12:00 69 05/22/24 11:00 14 104/56 (72) 94 05/22/24 08:00 97.8 97.8 05/22/24 07:15 Room Air* 0 21 Total Intake and Output 05/21/24 05/21/24 05/22/24 15:00 23:00 07:00 Intake Total 150 ml 631 ml 976 ml Output Total 300 ml Balance 150 ml 331 ml 976 ml medications Current Medications Medications Dose Ordered Sig/Herbert Route Start Time Stop Time Status Last Admin Dose Admin Norepinephrine Bitartrate 250 ml @ 3.75 mls/hr Q24H IV 05/21/24 05:30 05/22/24 05:45 7.5 MLS/HR Sodium Chloride 1,000 ml @ 100 mls/hr Q10H IV 05/21/24 06:45 05/22/24 02:45 100 MLS/HR Acetaminophen/ Hydrocodone Bitart 1 tab Q4HP PRN PO 05/21/24 06:45 Ondansetron HCl 4 mg Q4HP PRN IV 05/21/24 06:45 Acetaminophen 650 mg Q6HP PRN PO 05/21/24 06:45 Morphine Sulfate 2 mg Q4HPRN PRN IV 05/21/24 06:45 Diagnostic Test (Pha) 1 strip Q6HR 05/21/24 12:00 05/22/24 11:42 1 STRIP Insulin Human Regular Q6HR SC 05/21/24 12:00 05/21/24 13:38 2 UNITS Dextrose 50 ml UD PRN IV 05/21/24 06:45 Metronidazole 100 ml @ 100 mls/hr Q8H IV 05/21/24 16:00 05/22/24 08:03 100 MLS/HR Levofloxacin/ Dextrose 150 ml @ 100 mls/hr DAILY IV 05/21/24 10:00 05/22/24 09:33 100 MLS/HR Pantoprazole Sodium 40 mg Q12HR IV 05/21/24 10:00 05/22/24 09:33 40 MG Midodrine 10 mg TID@0600,1200,1800 PO 05/22/24 12:00 05/22/24 11:46 10 MG objective GEN: Healthy appearing, well-developed, NAD. Obese patient individual HEENT: NC/AT; MMM. CV: RRR, no m/r/g. LUNGS: CTAB, no w/r/c. ABD: Soft, NT/ND, NBS, no masses or organomegaly. EXT: skin Warm, well perfused. no rashes. No clubbing, cyanosis, or edema. NEURO: Ambulating with no limitations. No focal deficits. laboratory and microbiology Laboratory Tests 05/22/24 05:17 Test 05/22/24 05:17 Range/Units Serum Glucose 133 H 74-106 mg/dL Problems(with codes): (1) Melena (2) Near syncope (3) Abnormal finding on GI tract imaging (4) Hematemesis (5) GI bleed (6) Hypotension Prognosis Plan Advance to full liquid diet Continue Protonix 40 mg IV q.12 hours Taper off pressors Once the patient is off the pressors patient can be downgraded to telemetry NPO after midnight, I will schedule him for an endoscopy on 05/23/2024 a.m. Plan discussed with: Patient, Other CC Plasma Assessment Blood Product Administration S: [id number] MERYL DURAN MD May 22, 2024 13:30
[2024-05-22 16:59] VITALS: BP 114/69; PULSE 80; RESP 17; TEMP 97.9; O2SAT 97
[2024-05-22] MEDS ORDERED: LACT10PA2 PO (17:50)
[2024-05-22] MEDS ORDERED: TRAM50TA2 PO (17:50)
[2024-05-22] MEDS ORDERED: DICY10CA PO (17:50)
[2024-05-22 17:54] VITALS: O2SAT 97
[2024-05-22 20:00] VITALS: PULSE 69; PULSE 84
[2024-05-22 21:00] VITALS: BP 110/64; PULSE 81; RESP 19; TEMP 98.3; O2SAT 95
--- NOTE | 2024-05-22 23:40 | DVHPN2 ---
Subjective Update 05/22-patient continues to have dark stools. Hemoglobin stable. Able to wean off Levophed. Can downgrade to tele. GI to follow up today. Patient denies any shortness of breath, chest pain, abdominal pain. No further presyncope/syncopal symptoms. -05/21 patient admitted today this a.m.. Still on levo. Pressure is improving. Patient is very hesitant on getting a central line. We will try to wean off levo and give more fluids. Still having dark melanotic stools. Reviewed: H&P Changes from previous H/P or p: No Changes General: Per HPI Objective Vitals Vital Signs Date Time Temp Pulse Resp B/P (MAP) Pulse Ox O2 Delivery O2 Flow Rate FiO2 05/22/24 20:00 84 05/22/24 20:00 Room Air* 0 21 05/22/24 17:54 97 05/22/24 16:59 97.9 17 114/69 (84) 97.9 Intake/Output Intake and Output 05/22/24 07:00 Intake Total 1757 ml Output Total 300 ml Balance 1457 ml Intake IV Total 1757 ml Stool Total 300 ml Exam GEN: Healthy appearing, well-developed, NAD. Obese patient individual HEENT: NC/AT; MMM. CV: RRR, no m/r/g. LUNGS: CTAB, no w/r/c. ABD: Soft, NT/ND, NBS, no masses or organomegaly. EXT: skin Warm, well perfused. no rashes. No clubbing, cyanosis, or edema. NEURO: Ambulating with no limitations. No focal deficits. Medications Current Medications Medications Dose Ordered Sig/Herbert Route Start Time Stop Time Status Last Admin Dose Admin Sodium Chloride 1,000 ml @ 100 mls/hr Q10H IV 05/21/24 06:45 05/22/24 02:45 100 MLS/HR Acetaminophen/ Hydrocodone Bitart 1 tab Q4HP PRN PO 05/21/24 06:45 Ondansetron HCl 4 mg Q4HP PRN IV 05/21/24 06:45 Acetaminophen 650 mg Q6HP PRN PO 05/21/24 06:45 Morphine Sulfate 2 mg Q4HPRN PRN IV 05/21/24 06:45 Diagnostic Test (Pha) 1 strip Q6HR 05/21/24 12:00 05/22/24 17:38 1 STRIP Insulin Human Regular Q6HR SC 05/21/24 12:00 05/21/24 13:38 2 UNITS Dextrose 50 ml UD PRN IV 05/21/24 06:45 Metronidazole 100 ml @ 100 mls/hr Q8H IV 05/21/24 16:00 05/22/24 15:59 100 MLS/HR Levofloxacin/ Dextrose 150 ml @ 100 mls/hr DAILY IV 05/21/24 10:00 05/22/24 09:33 100 MLS/HR Pantoprazole Sodium 40 mg Q12HR IV 05/21/24 10:00 05/22/24 21:44 40 MG Midodrine 10 mg TID@0600,1200,1800 PO 05/22/24 12:00 05/22/24 17:37 10 MG Laboratory Results Laboratory Tests 05/22/24 05:17 Chemistry Test 05/22/24 05:17 Albumin 3.8 g/dL (3.2-4.8) Calcium Level 9.3 mg/dL (8.7-10.4) Total Protein 6.1 g/dL (5.7-8.2) LFT Test 05/22/24 05:17 Alanine Aminotransferase (ALT) 18 U/L (7-40) Alkaline Phosphatase 52 U/L (46-116) Aspartate Amino Transferase (AST) 13 U/L (13-40) Total Bilirubin 0.6 mg/dL (0.2-1.0) Urinalysis Test 05/22/24 08:40 Urine Color Light-yellow (Yellow) Urine Clarity Clear (Clear) Urine pH 6.0 (5.0-9.0) Urine Specific [place] 1.022 (1.001-1.035) Urine Protein Negative (Negative) Urine Ketones Trace (Negative) Urine Blood Negative /uL (Negative) Urine Nitrite Negative (Negative) Urine Bilirubin Negative (Negative) Urine Urobilinogen Normal mg/dL (Negative) Urine Leukocyte Esterase Negative /uL (Negative) Urine RBC None seen /hpf (0 - 3) Urine WBC 1 /hpf (0 - 3) Urine Squamous Epithelial Cells None seen /hpf (<5) Urine Bacteria None seen /hpf (None Seen) Urine Glucose Normal mg/dL (Normal) Labs and/or images reviewed: Labs reviewed by me, Image(s) reviewed by me Assessment/Plan Assessment/Plan Update 05/22-patient continues to have dark stools. Hemoglobin stable. Able to wean off Levophed. Can downgrade to tele. GI to follow up today. Patient denies any shortness of breath, chest pain, abdominal pain. No further presyncope/syncopal symptoms. # septic versus hemorrhagic shock possible - on Levophed 4-6 mg per minute, now weaned off. Likely hemorrhagic shock. # melena, upper GI bleed on PPI b.i.d. IV, type and screen, large-bore IVs x2, NPO midnight, GI consult (PPI IV b.i.d., Carafate, SOB, EGD likely 05/23). SOB negative # hematemesis see above # septic shock with leukocytosis and hypotension-source could likely be GI we will continue with antibiotics IV #pulmonary nodules on CT abdomen have picked up some pulmonary nodules, can be worked up outpatient # syncopal episode-likely from GI hemorrhage and hypotension-CT head negative for any intracranial hemorrhage # head trauma due to syncope CT head negative for acute intracranial hemorrhage or abnormalities # type 2 diabetes mild scale SSI and Accu-Cheks a.c. HS Diet clear liquid diet NPO midnight GI prophylaxis PPI IV b.i.d. DVT prophylaxis-SCDs only, no chemical DVT prophylaxis due to bleed Med tele Full code Plan discussed with: Patient My Orders Orders - DARREL KNGIHT MD Procedure Category Date Status Time Blood Culture DEL 05/22/24 In Process 08:25 Midodrine Tablet PHA 05/22/24 In Process (Proamatine Tablet) 12:00 Date of Service: May 22, 2024 Billing Provider: DARREL KNIGHT MD Common Visit Codes: [id number] INP/OBS CARE(HIGH) DARREL KNIGHT MD May 22, 2024 23:40
[2024-05-23] VITALS (10 sets, daily range): BP systolic 95–130; BP diastolic 48–74; PULSE 73–90; RESP 10–20; TEMP 97.9–98.3; O2SAT 93–98
[2024-05-23 07:14] LABS: Basophils # (auto) 0 10 ^3/uL (0-0.2); Basophils % (auto) 0.3 % (0.0-2.0); Eosinophils # (auto) 0 10 ^3/uL (0-0.8); Eosinophils % (auto) 0.7 % (0.0-7.0); Hematocrit 31.5 % (41.0-53.0); Hemoglobin 10.7 g/dL (13.5-17.5); Lymphocytes % (auto) 28.2 % (10.0-50.0); Mean Corpuscular Hemoglobin 28.6 pg (28.0-32.0); Mean Corpuscular Hgb Conc. 33.8 g/dL (32.0-36.0); Mean Corpuscular Volume 84.4 fL (80.0-100.0); Monocytes # (auto) 0.4 10 ^3/uL (0-1.3); Monocytes % (auto) 6.4 % (0.0-12.0); Neutrophils # (auto) 4.5 10 ^3/uL (1.6-8.6); Neutrophils % (auto) 64.4 % (37.0-80.0); Nucleated Red Blood Cells % 0.1 %; Platelet Count (auto) 208 10^3/uL (140-450); Red Blood Cells 3.73 10^6/uL (4.5-5.90); Red Cell Distribution Width 14.5 % (11.8-14.3)
--- NOTE | 2024-05-23 07:35 | DVH ---
CLINICAL INFORMATION: 54 years old, Male; preoperative examination. TECHNIQUE: Single AP portable chest radiograph was obtained. COMPARISON: None FINDINGS: Lungs: Low lung volumes with bibasilar atelectasis. No focal consolidation visualized. Cardiac: Heart size is within normal limits. Pulmonary vasculature: Unremarkable. Mediastinum/josh: Unremarkable. Bones: No acute osseous abnormality identified. Other: No other significant findings. IMPRESSION: Low lung volumes with bibasilar atelectasis. No focal consolidation visualized. Otherwise, no evidenc e of acute disease in the chest.
[2024-05-23 08:06] LABS: Alanine Aminotransferase 20 U/L (7-40); Albumin 3.8 g/dL (3.2-4.8); Alkaline Phosphatase 50 U/L (46-116); Anion Gap 7 (5-15); Aspartate Aminotransferase 16 U/L (13-40); BUN/Creatinine Ratio 11.8 (10.0-20.0); Calcium 9.3 mg/dL (8.7-10.4); Carbon Dioxide 25 mmol/L (20-31); Glucose 96 mg/dL (74-106); Potassium 3.5 mmol/L (3.5-5.1); Sodium 141 mmol/L (136-145)
[2024-05-23 08:07] LABS: Bilirubin, Total 0.5 mg/dL (0.2-1.0); Blood Urea Nitrogen 9 mg/dL (9-23); Chloride 109 mmol/L (98-107)
[2024-05-23] MEDS ORDERED: MIDAZOLAM HCL 2MG/2ML 2ml VIAL (1mg/ml) ONE (08:15)
[2024-05-23] MEDS ORDERED: LIDOCAINE 1% INJ PF 5ML AMP ONE (08:16)
[2024-05-23] MEDS ORDERED: PROPOFOL 10 MG/ML 20 ML IV ONE (08:16)
[2024-05-23] MEDS ORDERED: ONDANSETRON HCL 4 MG/2 ML VIAL ONE (08:16)
--- NOTE | 2024-05-23 08:36 | DVHOP2 ---
Operative Report DATE OF OPERATION: 05/23/24 PROCEDURE: Upper Endoscopy with biopsy. PREOPERATIVE INDICATION: The patient is a 54 -year-old male undergoing endoscopy for history of melena nausea vomiting and hematemesis POSTOPERATIVE DIAGNOSES: 1. 5-10 mm extension irregular squamocolumnar junction into the distal esophagus no significant erosive esophagitis 2. Mild gastroduodenitis with some hyperemia erythema superficial erosions 3. Otherwise normal examination up to the 3rd part of the duodenum with good bile drainage and no active bleeding PROCEDURE PERFORMED BY: Meryl Orosco GI NURSE: Alfred SCOPE: Olympus videoendoscope. ASA CLASS: 2 PREOPERATIVE MEDICATIONS: Dr. Tejal Lobato PROCEDURE IN DETAIL: After obtaining an informed consent, the patient was placed on left lateral decubitus position. The patient was then sedated with the above medications. A bite block was placed between his teeth. The endoscope was then passed through the oropharynx, into the esophagus, and through the stomach and pylorus up to the second and third part of the duodenum. The endoscope was then withdrawn. The 2nd and 3rd part of the duodenum were normal and the duodenal bulb showed mild to moderate duodenitis The pre-pyloric area and antrum showed mild antral gastritis with superficial erosions. No fresh or old blood was seen in the stomach. On retroflexion the fundus cardia and angularis were normal. Duodenal and gastric biopsies were obtained. The endoscope was then withdrawn into the distal esophagus Patient had a 5-10 mm extension of columnar epithelium into the distal esophagus with no significant hiatal hernia no esophagitis Some GE junction biopsies were obtained. The remaining distal and proximal esophagus and oropharynx were unremarkable The patient tolerated the procedure well without difficulty. COMPLICATIONS : None SPECIMENS: Duodenal biopsies Gastric biopsies GE junction biopsies DISPOSITION: Transfer back to the floor Stable PLAN: 1. Await for biopsy result 2. Will place pt on Protonix 40 mg p.o. daily 3. Carafate 1 g p.o. twice a day 4. Clear liquid diet advance as tolerated 5. I will discuss the option of a colonoscopy with him MERYL OROSCO MD May 23, 2024 08:36
[2024-05-23] MEDS: ONDANSETRON HCL 4 MG/2 ML VIAL IV ONE (08:45)
[2024-05-23] MEDS: SODIUM CHLORIDE 0.9% 500 ML IV ONE (11:30)
[2024-05-23] MEDS: IOHEXOL 300 MG/ML 100ML BOTTLE IJ ONE (12:02)
--- NOTE | 2024-05-23 12:30 | DVH ---
Procedure: CT CHEST WITH CONTRAST Reason for study/Clinical History: pulmonary nodules Comparison Study: None available at time of dictation. Exam Date: 05/23/2024 11:55 AM Radiation Dose Information: CT Dose: CTDI volume is 18.5 mGy. Dose-length product is 772.0 mGy*cm Contrast: Type of contrast: Omnipaque 300 Contrast inject: 100 cc Contrast wasted:0 TECHNIQUE: After the uneventful administration of intravenous contrast intravenously, CT imaging was performed through the chest. Coronal and sagittal reformations were performed by the technologist. FINDINGS: Lower Neck: Visualized portions of the thyroid gland are unremarkable. Aorta and Vasculature: Normal caliber of thoracic aorta. Lymph Nodes: No enlarged intrathoracic lymph nodes. Small mediastinal nodes are present under a cm in size Mediastinum: Heart size is slightly enlarged. There is no pericardial effusion. The esophagus is unre markable. Lungs: Areas of atelectasis in the right lower lobe, the lingula, in the left lower lobe. No pulmona ry nodule seen No pleural effusions. Musculoskeletal: No acute osseous abnormality. Upper abdomen: The 18 mm cystic lesion with a peripheral calcification in the right kidney. IMPRESSION: 1. No pulmonary nodules are seen on this exam. There are areas ofatelectasis in both lower lung zones and in the lingula of the left upper lobe. 2. Cardiomegaly. 3. All CT scans at this medical facility are performed using dose modulation techniques as appropriat e to a performed exam including the following: Automated exposure control was utilized; adjustment of the MA and/or KV according to patient size; and use of iterative reconstruction technique.
[2024-05-23 13:17] LABS: Basophils # (auto) 0 10 ^3/uL (0-0.2); Basophils % (auto) 0.3 % (0.0-2.0); Eosinophils # (auto) 0 10 ^3/uL (0-0.8); Eosinophils % (auto) 0.5 % (0.0-7.0); Hematocrit 33.1 % (41.0-53.0); Hemoglobin 11.2 g/dL (13.5-17.5); Lymphocytes # (auto) 2.3 10 ^3/uL (0.4-5.4); Lymphocytes % (auto) 33.2 % (10.0-50.0); Mean Corpuscular Hemoglobin 28.6 pg (28.0-32.0); Mean Corpuscular Hgb Conc. 33.8 g/dL (32.0-36.0); Mean Corpuscular Volume 84.5 fL (80.0-100.0); Monocytes # (auto) 0.4 10 ^3/uL (0-1.3); Monocytes % (auto) 5.8 % (0.0-12.0); Neutrophils # (auto) 4.1 10 ^3/uL (1.6-8.6); Neutrophils % (auto) 60.2 % (37.0-80.0); Nucleated Red Blood Cells % 0.1 %; Platelet Count (auto) 214 10^3/uL (140-450); Red Blood Cells 3.91 10^6/uL (4.5-5.90); Red Cell Distribution Width 14.5 % (11.8-14.3); White Blood Cell 6.9 10^3/uL (4.4-10.8)
--- NOTE | 2024-05-23 20:43 | DVHPN2 ---
Subjective Update -05/23--patient is status post EGD today, under scope advanced to duodenum with no identified sources of bleeding. Patient returns to room with clear liquid diet. Upon returning patient's starts to have another bloody bowel movement confirmed by nursing staff. Stool occult blood sent again. No colonoscopy planned for current plan. Continue admission to ensure bleeding stops. Patient did also have another hypotensive episode after the bowel movement, patient was fluid bolused and legs raised leading to improvement of blood pressure. Patient has some lightheadedness. Denies shortness of breath, abdominal pain, chest pain, syncope. Continue midodrine for now. -05/22-patient continues to have dark stools. Hemoglobin stable. Able to wean off Levophed. Can downgrade to tele. GI to follow up today. Patient denies any shortness of breath, chest pain, abdominal pain. No further presyncope/syncopal symptoms. -05/21 patient admitted today this a.m.. Still on levo. Pressure is improving. Patient is very hesitant on getting a central line. We will try to wean off levo and give more fluids. Still having dark melanotic stools. Reviewed: H&P Changes from previous H/P or p: No Changes General: Per HPI Objective Vitals Vital Signs Date Time Temp Pulse Resp B/P (MAP) Pulse Ox O2 Delivery O2 Flow Rate FiO2 05/23/24 17:22 98.3 85 20 116/70 (85) 95 98.3 05/23/24 08:33 Mask 8.0 05/22/24 20:00 21 Intake/Output Intake and Output 05/23/24 07:00 Intake Total 2553.375 ml Output Total 825 ml Balance 1728.375 ml Intake Oral 0 ml IV Total 2553.375 ml Output Urine Total 825 ml # Voids 1 # Bowel Movements 1 Exam GEN: Healthy appearing, well-developed, NAD. Obese patient individual HEENT: NC/AT; MMM. CV: RRR, no m/r/g. LUNGS: CTAB, no w/r/c. ABD: Soft, NT/ND, NBS, no masses or organomegaly. EXT: skin Warm, well perfused. no rashes. No clubbing, cyanosis, or edema. NEURO: Ambulating with no limitations. No focal deficits. Medications Current Medications Medications Dose Ordered Sig/Herbert Route Start Time Stop Time Status Last Admin Dose Admin Acetaminophen/ Hydrocodone Bitart 1 tab Q4HP PRN PO 05/21/24 06:45 Ondansetron HCl 4 mg Q4HP PRN IV 05/21/24 06:45 Acetaminophen 650 mg Q6HP PRN PO 05/21/24 06:45 Morphine Sulfate 2 mg Q4HPRN PRN IV 05/21/24 06:45 Diagnostic Test (Pha) 1 strip Q6HR 05/21/24 12:00 05/23/24 12:00 1 STRIP Dextrose 50 ml UD PRN IV 05/21/24 06:45 Metronidazole 100 ml @ 100 mls/hr Q8H IV 05/21/24 16:00 05/23/24 16:45 100 MLS/HR Levofloxacin/ Dextrose 150 ml @ 100 mls/hr DAILY IV 05/21/24 10:00 05/23/24 10:00 100 MLS/HR Pantoprazole Sodium 40 mg Q12HR IV 05/21/24 10:00 05/23/24 09:44 40 MG Midodrine 10 mg TID@0600,1200,1800 PO 05/22/24 12:00 05/23/24 05:27 10 MG Laboratory Results Laboratory Tests 05/23/24 06:40 05/23/24 11:40 Chemistry Test 05/23/24 06:40 Albumin 3.8 g/dL (3.2-4.8) Calcium Level 9.3 mg/dL (8.7-10.4) Total Protein 6.0 g/dL (5.7-8.2) LFT Test 05/23/24 06:40 Alanine Aminotransferase (ALT) 20 U/L (7-40) Alkaline Phosphatase 50 U/L (46-116) Aspartate Amino Transferase (AST) 16 U/L (13-40) Total Bilirubin 0.5 mg/dL (0.2-1.0) Urinalysis Test 05/22/24 08:40 Urine Color Light-yellow (Yellow) Urine Clarity Clear (Clear) Urine pH 6.0 (5.0-9.0) Urine Specific [place] 1.022 (1.001-1.035) Urine Protein Negative (Negative) Urine Ketones Trace (Negative) Urine Blood Negative /uL (Negative) Urine Nitrite Negative (Negative) Urine Bilirubin Negative (Negative) Urine Urobilinogen Normal mg/dL (Negative) Urine Leukocyte Esterase Negative /uL (Negative) Urine RBC None seen /hpf (0 - 3) Urine WBC 1 /hpf (0 - 3) Urine Squamous Epithelial Cells None seen /hpf (<5) Urine Bacteria None seen /hpf (None Seen) Urine Glucose Normal mg/dL (Normal) Microbiology Microbiology Date/Time Source Procedure Growth Status 05/22/24 09:06 Blood Blood Culture - Preliminary NO GROWTH AFTER 24 HOURS OF INCUBATION. Resulted Labs and/or images reviewed: Labs reviewed by me, Image(s) reviewed by me Assessment/Plan Assessment/Plan Update -05/23--patient is status post EGD today, under scope advanced to duodenum with no identified sources of bleeding. Patient returns to room with clear liquid diet. Upon returning patient's starts to have another bloody bowel movement confirmed by nursing staff. Stool occult blood sent again. No colonoscopy planned for current plan. Continue admission to ensure bleeding stops. Patient did also have another hypotensive episode after the bowel movement, patient was fluid bolused and legs raised leading to improvement of blood pressure. Repeat hemoglobin remains stable 10.7-11.2. Patient has some lightheadedness. Denies shortness of breath, abdominal pain, chest pain, syncope. Continue midodrine for now. # hemorrhagic shock likely; septic shock possible; self-resolving - on Levophed 4-6 mg per minute, now weaned off. Likely hemorrhagic shock. # melena, upper GI bleed - started on PPI b.i.d. IV, type and screen, large-bore IVs x2, NPO midnight, GI consult (PPI IV b.i.d., Carafate, SOB, EGD likely 05/23). SOB negative. EGD 05/23 with mild gastroduodenitis with hyperemia, advanced to 3rd part of duodenum with good bile drainage and no bleeding source found. GI notified of recurrent melena after EGD on 05/23. # hematemesis - see above # septic shock with leukocytosis and hypotension, resolved- sepsis unlikely. source could likely be GI. For now will continue with antibiotics IV. # bilateral lower extremity edema - patient has shortness of breath dyspnea on exertion bibasilar rales, lower extremity edema-NYHA 3-4. Risk of heart failure, we will get echo when patient is stabilized with a GI bleed. #pulmonary nodules on CT abdomen have picked up some pulmonary nodules, can be worked up outpatient # syncopal episode-likely from GI hemorrhage and hypotension-CT head negative for any intracranial hemorrhage # head trauma due to syncope CT head negative for acute intracranial hemorrhage or abnormalities # type 2 diabetes mild scale SSI and Accu-Cheks a.c. HS Diet clear liquid diet GI prophylaxis PPI IV b.i.d. DVT prophylaxis-SCDs only, no chemical DVT prophylaxis due to bleed Med tele Full code Plan discussed with: Patient My Orders Orders - DARREL KNIGHT MD Procedure Category Date Status Time Chest Portable XY 05/23/24 Resulted 05:40 Stool Occult Blood LAB 05/23/24 Logged 11:19 Date of Service: May 23, 2024 Billing Provider: DARREL KNIGHT MD Common Visit Codes: [id number] INP/OBS CARE(HIGH) DARREL KNIGHT MD May 23, 2024 20:43
[2024-05-24] VITALS (8 sets, daily range): BP systolic 99–124; BP diastolic 54–82; PULSE 62–90; RESP 16–20; TEMP 97.8–98.4; O2SAT 94–96
[2024-05-24 07:51] LABS: Basophils # (auto) 0 10 ^3/uL (0-0.2); Basophils % (auto) 0.3 % (0.0-2.0); Eosinophils # (auto) 0.1 10 ^3/uL (0-0.8); Eosinophils % (auto) 0.8 % (0.0-7.0); Hematocrit 30.5 % (41.0-53.0); Hemoglobin 10.4 g/dL (13.5-17.5); Lymphocytes # (auto) 1.7 10 ^3/uL (0.4-5.4); Mean Corpuscular Hemoglobin 28.9 pg (28.0-32.0); Monocytes # (auto) 0.6 10 ^3/uL (0-1.3); Monocytes % (auto) 8.3 % (0.0-12.0); Neutrophils # (auto) 4.5 10 ^3/uL (1.6-8.6); Neutrophils % (auto) 65.6 % (37.0-80.0); Platelet Count (auto) 203 10^3/uL (140-450); Red Blood Cells 3.59 10^6/uL (4.5-5.90); Red Cell Distribution Width 14.3 % (11.8-14.3); White Blood Cell 6.9 10^3/uL (4.4-10.8)
[2024-05-24 08:05] LABS: Alanine Aminotransferase 20 U/L (7-40); Alkaline Phosphatase 50 U/L (46-116); Anion Gap 7 (5-15); Aspartate Aminotransferase 18 U/L (13-40); BUN/Creatinine Ratio 6.4 (10.0-20.0); Calcium 9.4 mg/dL (8.7-10.4); Carbon Dioxide 27 mmol/L (20-31); Glucose 92 mg/dL (74-106); Sodium 142 mmol/L (136-145)
[2024-05-24 08:06] LABS: Albumin 3.8 g/dL (3.2-4.8); Bilirubin, Total 0.5 mg/dL (0.2-1.0); Total Protein 5.9 g/dL (5.7-8.2)
[2024-05-24 08:07] LABS: Blood Urea Nitrogen 5 mg/dL (9-23); Chloride 108 mmol/L (98-107); Potassium 3.3 mmol/L (3.5-5.1)
[2024-05-24] MEDS: ACETAMINOPHEN 325 MG TAB PO PRN (09:20)
[2024-05-24] MEDS: POTASSIUM EFFERVESENT TAB 25 MEQ PO ONE (10:39)
--- NOTE | 2024-05-24 12:40 | ECG ---
[facility] Test Date: 2024-05-21 Test Time: 04:40:01 Pat Name: MARY KAHN Department: ER Room: [facility]5T A Gender: M [employer]: AM : 1970 Requested By: DONIS MUÑOZ Order Number: [id number] Reading MD: Rupesh Redd Measurements Intervals [place] Rate: 82 P: 51 VT: 162 QRS: 238 QRSD: 102 T: 5 QT: 365 QTc: 427 Interpretive Statements Sinus rhythm Right axis deviation Low voltage, precordial leads Abnormal R-wave progression, late transition Electronically Signed On 05-24-2024 17:54:33 PST by Rupesh Redd Please click the below link to view image of tracing.
--- NOTE | 2024-05-24 19:52 | DVHPN2 ---
Subjective Update -05/23 patient is stable but continues to have small melanotic stools frequently. GI notified. Plan for colonoscopy on coming . We will keep patient on clear liquid diet. Patient has no abdominal pain. No chest pain. No nausea or vomiting. Tolerating CLD. Amenable to plan -05/23--patient is status post EGD today, under scope advanced to duodenum with no identified sources of bleeding. Patient returns to room with clear liquid diet. Upon returning patient's starts to have another bloody bowel movement confirmed by nursing staff. Stool occult blood sent again. No colonoscopy planned for current plan. Continue admission to ensure bleeding stops. Patient did also have another hypotensive episode after the bowel movement, patient was fluid bolused and legs raised leading to improvement of blood pressure. Patient has some lightheadedness. Denies shortness of breath, abdominal pain, chest pain, syncope. Continue midodrine for now. -05/22-patient continues to have dark stools. Hemoglobin stable. Able to wean off Levophed. Can downgrade to tele. GI to follow up today. Patient denies any shortness of breath, chest pain, abdominal pain. No further presyncope/syncopal symptoms. -05/21 patient admitted today this a.m.. Still on levo. Pressure is improving. Patient is very hesitant on getting a central line. We will try to wean off levo and give more fluids. Still having dark melanotic stools. Reviewed: H&P Changes from previous H/P or p: No Changes General: Per HPI Objective Vitals Vital Signs Date Time Temp Pulse Resp B/P (MAP) Pulse Ox O2 Delivery O2 Flow Rate FiO2 05/24/24 17:00 98.3 76 16 123/73 (90) 95 98.3 05/24/24 08:00 Room Air* 0 21 Intake/Output Intake and Output 05/24/24 07:00 Intake Total 1690 ml Output Total 600 ml Balance 1090 ml Intake Oral 1215 ml IV Total 475 ml Output Urine Total 600 ml # Voids 7 # Bowel Movements 2 Exam GEN: Healthy appearing, well-developed, NAD. Obese patient individual HEENT: NC/AT; MMM. CV: RRR, no m/r/g. LUNGS: CTAB, no w/r/c. ABD: Soft, NT/ND, NBS, no masses or organomegaly. EXT: skin Warm, well perfused. no rashes. No clubbing, cyanosis, or edema. NEURO: Ambulating with no limitations. No focal deficits. Medications Current Medications Medications Dose Ordered Sig/Herbert Route Start Time Stop Time Status Last Admin Dose Admin Acetaminophen/ Hydrocodone Bitart 1 tab Q4HP PRN PO 05/21/24 06:45 Ondansetron HCl 4 mg Q4HP PRN IV 05/21/24 06:45 Acetaminophen 650 mg Q6HP PRN PO 05/21/24 06:45 05/24/24 09:20 650 MG Morphine Sulfate 2 mg Q4HPRN PRN IV 05/21/24 06:45 Metronidazole 100 ml @ 100 mls/hr Q8H IV 05/21/24 16:00 05/24/24 16:13 100 MLS/HR Levofloxacin/ Dextrose 150 ml @ 100 mls/hr DAILY IV 05/21/24 10:00 Hold 05/24/24 10:39 100 MLS/HR Pantoprazole Sodium 40 mg Q12HR IV 05/21/24 10:00 05/24/24 10:39 40 MG Midodrine 10 mg TID@0600,1200,1800 PO 05/22/24 12:00 05/24/24 06:02 10 MG Laboratory Results Laboratory Tests 05/24/24 06:24 Chemistry Test 05/24/24 06:24 Albumin 3.8 g/dL (3.2-4.8) Calcium Level 9.4 mg/dL (8.7-10.4) Total Protein 5.9 g/dL (5.7-8.2) LFT Test 05/24/24 06:24 Alanine Aminotransferase (ALT) 20 U/L (7-40) Alkaline Phosphatase 50 U/L (46-116) Aspartate Amino Transferase (AST) 18 U/L (13-40) Total Bilirubin 0.5 mg/dL (0.2-1.0) Urinalysis Test 05/22/24 08:40 Urine Color Light-yellow (Yellow) Urine Clarity Clear (Clear) Urine pH 6.0 (5.0-9.0) Urine Specific [place] 1.022 (1.001-1.035) Urine Protein Negative (Negative) Urine Ketones Trace (Negative) Urine Blood Negative /uL (Negative) Urine Nitrite Negative (Negative) Urine Bilirubin Negative (Negative) Urine Urobilinogen Normal mg/dL (Negative) Urine Leukocyte Esterase Negative /uL (Negative) Urine RBC None seen /hpf (0 - 3) Urine WBC 1 /hpf (0 - 3) Urine Squamous Epithelial Cells None seen /hpf (<5) Urine Bacteria None seen /hpf (None Seen) Urine Glucose Normal mg/dL (Normal) Microbiology Microbiology Date/Time Source Procedure Growth Status 05/22/24 09:06 Blood Blood Culture - Preliminary NO GROWTH AFTER 48 HOURS OF INCUBATION. Resulted Labs and/or images reviewed: Labs reviewed by me, Image(s) reviewed by me Assessment/Plan Assessment/Plan Update --05/23 patient is stable but continues to have small melanotic stools frequently. GI notified. Plan for colonoscopy on coming . We will keep patient on clear liquid diet. Patient has no abdominal pain. No chest pain. No nausea or vomiting. Tolerating CLD. Amenable to plan # hemorrhagic shock likely; septic shock possible; self-resolving - on Levophed 4-6 mg per minute, now weaned off. Likely hemorrhagic shock. # cardiogenic shock ruleout- get echo pending. # melena, upper GI bleed - started on PPI b.i.d. IV, type and screen, large-bore IVs x2, NPO midnight, GI consult (PPI IV b.i.d., Carafate, SOB, EGD likely 05/23). SOB negative. EGD 05/23 with mild gastroduodenitis with hyperemia, advanced to 3rd part of duodenum with good bile drainage and no bleeding source found. GI notified of recurrent melena after EGD on 05/23.. continue melena - plan for Cscope on may. # hematemesis - see above # septic shock with leukocytosis and hypotension, resolved- sepsis unlikely. source could likely be GI. For now will continue with antibiotics IV. # bilateral lower extremity edema - patient has shortness of breath dyspnea on exertion bibasilar rales, lower extremity edema-NYHA 3-4. Risk of heart failure, we will get echo when patient is stabilized with a GI bleed. #pulmonary nodules on CT abdomen have picked up some pulmonary nodules, can be worked up outpatient CT chest without nodules (likely atelectasis?) # syncopal episode-likely from GI hemorrhage and hypotension-CT head negative for any intracranial hemorrhage # head trauma due to syncope CT head negative for acute intracranial hemorrhage or abnormalities # type 2 diabetes mild scale SSI and Accu-Cheks a.c. HS Diet clear liquid diet GI prophylaxis PPI IV b.i.d. DVT prophylaxis-SCDs only, no chemical DVT prophylaxis due to bleed Med tele Full code Plan discussed with: Patient, Spouse My Orders Orders - DARREL KNIGHT MD Procedure Category Date Status Time Initiate Vte EVAN 05/23/24 In Process Prophylaxis 22:51 Date of Service: May 24, 2024 Billing Provider: DARREL KNIGHT MD Common Visit Codes: [id number] INP/OBS CARE(HIGH) DARREL KNIGHT MD May 24, 2024 19:52
--- NOTE | 2024-05-24 22:38 | DVHPN2 ---
Progress Note - Dictate Date Seen: May 24, 2024 Medical Necessity Reason Pt with a Central, PICC or Fol: No Subjective No new complaints Patient had two dark bowel movements yesterday He denies use of aspirin or Pepto-Bismol Tolerating clear liquid diet H&H is fairly stable with a slight drift down to 10.4 Stool for occult blood was negative Patient is having periods of hypotension requiring intermittent pressors There was concern for possible underlying CHF and an echocardiogram will be obtained vital signs Vital Sign Date Time Temp Pulse Resp B/P (MAP) Pulse Ox O2 Delivery O2 Flow Rate FiO2 05/24/24 21:00 98.0 77 20 124/82 (96) 96 98.0 05/24/24 08:00 Room Air* 0 21 Total Intake and Output 05/23/24 05/23/24 05/24/24 15:00 23:00 07:00 Intake Total 275 ml 1100 ml 315 ml Output Total 600 ml Balance 275 ml 500 ml 315 ml medications Current Medications Medications Dose Ordered Sig/Herbert Route Start Time Stop Time Status Last Admin Dose Admin Acetaminophen/ Hydrocodone Bitart 1 tab Q4HP PRN PO 05/21/24 06:45 Ondansetron HCl 4 mg Q4HP PRN IV 05/21/24 06:45 Acetaminophen 650 mg Q6HP PRN PO 05/21/24 06:45 05/24/24 09:20 650 MG Morphine Sulfate 2 mg Q4HPRN PRN IV 05/21/24 06:45 Metronidazole 100 ml @ 100 mls/hr Q8H IV 05/21/24 16:00 05/24/24 16:13 100 MLS/HR Levofloxacin/ Dextrose 150 ml @ 100 mls/hr DAILY IV 05/21/24 10:00 Hold 05/24/24 10:39 100 MLS/HR Pantoprazole Sodium 40 mg Q12HR IV 05/21/24 10:00 05/24/24 21:51 40 MG Midodrine 10 mg TID@0600,1200,1800 PO 05/22/24 12:00 05/24/24 06:02 10 MG objective GEN: Healthy appearing, well-developed, NAD. Obese patient individual HEENT: NC/AT; MMM. CV: RRR, no m/r/g. LUNGS: CTAB, no w/r/c. ABD: Soft, NT/ND, NBS, no masses or organomegaly. EXT: skin Warm, well perfused. no rashes. No clubbing, cyanosis, or edema. NEURO: Ambulating with no limitations. No focal deficits. laboratory and microbiology Laboratory Tests 05/24/24 06:24 Test 05/24/24 06:24 Range/Units Serum Glucose 92 74-106 mg/dL Problems(with codes): (1) Abnormal finding on GI tract imaging (2) Near syncope (3) Melena (4) Hematemesis (5) GI bleed (6) Hypotension Prognosis Plan Continue to monitor patient IV fluid hydration Advance to full liquid diet DC aspirin NSAIDs and blood thinners, smoking and alcohol If the patient shows signs of active bleeding I will schedule a colonoscopy 05/26/2024 or 05/27/2024 Dietary Evaluation Review Recommendations by RD: Dietary education by RD Comments: 1) Advance to full liquid diet and ultimately CCHO 60g diet when medically feasible. 2) Continue to monitor PO intake and stool color. 3) Consider GI consult. 4) Refer to outpatient RD/CDCES for DM and weight loss education. Expected Outcomes/Goals: 1) diet to advance 2) appetite and labs to improve 3) continue plan of care 4) f/u in 2-3 days Plan discussed with: Patient, Other (Dr Rodriguez) CC Plasma Assessment Blood Product Administration S: [id number] MERYL DURAN MD May 24, 2024 22:38
[2024-05-25] VITALS (8 sets, daily range): BP systolic 94–124; BP diastolic 61–78; PULSE 68–83; RESP 18–20; TEMP 97.7–98.2; O2SAT 93–98
[2024-05-25 05:32] LABS: Alanine Aminotransferase 27 U/L (7-40); Albumin 4.1 g/dL (3.2-4.8); Alkaline Phosphatase 55 U/L (46-116); Anion Gap 9 (5-15); Aspartate Aminotransferase 22 U/L (13-40); BUN/Creatinine Ratio 7.8 (10.0-20.0); Bilirubin, Total 0.6 mg/dL (0.2-1.0); Calcium 9.8 mg/dL (8.7-10.4); Carbon Dioxide 26 mmol/L (20-31); Glucose 95 mg/dL (74-106); Potassium 3.6 mmol/L (3.5-5.1); Sodium 142 mmol/L (136-145); Total Protein 6.6 g/dL (5.7-8.2)
[2024-05-25 05:33] LABS: Blood Urea Nitrogen 6 mg/dL (9-23); Chloride 107 mmol/L (98-107)
[2024-05-25 05:44] LABS: Basophils # (auto) 0 10 ^3/uL (0-0.2); Basophils % (auto) 0.3 % (0.0-2.0); Eosinophils # (auto) 0.1 10 ^3/uL (0-0.8); Eosinophils % (auto) 1.3 % (0.0-7.0); Hematocrit 32.3 % (41.0-53.0); Hemoglobin 11.1 g/dL (13.5-17.5); Lymphocytes # (auto) 2.1 10 ^3/uL (0.4-5.4); Lymphocytes % (auto) 25.3 % (10.0-50.0); Mean Corpuscular Hemoglobin 29.1 pg (28.0-32.0); Mean Corpuscular Hgb Conc. 34.3 g/dL (32.0-36.0); Mean Corpuscular Volume 84.9 fL (80.0-100.0); Monocytes # (auto) 0.6 10 ^3/uL (0-1.3); Monocytes % (auto) 7.8 % (0.0-12.0); Neutrophils # (auto) 5.3 10 ^3/uL (1.6-8.6); Neutrophils % (auto) 65.3 % (37.0-80.0); Nucleated Red Blood Cells % 0.1 %; Platelet Count (auto) 233 10^3/uL (140-450); Red Cell Distribution Width 14.7 % (11.8-14.3); White Blood Cell 8.1 10^3/uL (4.4-10.8)
--- NOTE | 2024-05-25 09:30 | DVHPN2 ---
Subjective Update -05/25-patient doing okay, vital signs stable. Melena is improving. Blood pressure remains low. But patient is asymptomatic. Plan for C scope prep today with C scope tomorrow -05/23 patient is stable but continues to have small melanotic stools frequently. GI notified. Plan for colonoscopy on coming . We will keep patient on clear liquid diet. Patient has no abdominal pain. No chest pain. No nausea or vomiting. Tolerating CLD. Amenable to plan -05/23--patient is status post EGD today, under scope advanced to duodenum with no identified sources of bleeding. Patient returns to room with clear liquid diet. Upon returning patient's starts to have another bloody bowel movement confirmed by nursing staff. Stool occult blood sent again. No colonoscopy planned for current plan. Continue admission to ensure bleeding stops. Patient did also have another hypotensive episode after the bowel movement, patient was fluid bolused and legs raised leading to improvement of blood pressure. Patient has some lightheadedness. Denies shortness of breath, abdominal pain, chest pain, syncope. Continue midodrine for now. -05/22-patient continues to have dark stools. Hemoglobin stable. Able to wean off Levophed. Can downgrade to tele. GI to follow up today. Patient denies any shortness of breath, chest pain, abdominal pain. No further presyncope/syncopal symptoms. -05/21 patient admitted today this a.m.. Still on levo. Pressure is improving. Patient is very hesitant on getting a central line. We will try to wean off levo and give more fluids. Still having dark melanotic stools. Reviewed: H&P Changes from previous H/P or p: No Changes General: Per HPI Objective Vitals Vital Signs Date Time Temp Pulse Resp B/P (MAP) Pulse Ox O2 Delivery O2 Flow Rate FiO2 05/25/24 08:39 97.8 73 18 94/61 (72) 94 97.8 05/24/24 20:00 Room Air* 0 21 Intake/Output Intake and Output 05/25/24 07:00 Intake Total 3000 ml Balance 3000 ml Intake Oral 2550 ml IV Total 450 ml # Voids 6 Exam GEN: Healthy appearing, well-developed, NAD. Obese patient individual HEENT: NC/AT; MMM. CV: RRR, no m/r/g. LUNGS: CTAB, no w/r/c. ABD: Soft, NT/ND, NBS, no masses or organomegaly. EXT: skin Warm, well perfused. no rashes. No clubbing, cyanosis, or edema. NEURO: Ambulating with no limitations. No focal deficits. Medications Current Medications Medications Dose Ordered Sig/Herbert Route Start Time Stop Time Status Last Admin Dose Admin Acetaminophen/ Hydrocodone Bitart 1 tab Q4HP PRN PO 05/21/24 06:45 Ondansetron HCl 4 mg Q4HP PRN IV 05/21/24 06:45 Acetaminophen 650 mg Q6HP PRN PO 05/21/24 06:45 05/24/24 09:20 650 MG Morphine Sulfate 2 mg Q4HPRN PRN IV 05/21/24 06:45 Metronidazole 100 ml @ 100 mls/hr Q8H IV 05/21/24 16:00 05/25/24 07:59 100 MLS/HR Levofloxacin/ Dextrose 150 ml @ 100 mls/hr DAILY IV 05/21/24 10:00 Hold 05/24/24 10:39 100 MLS/HR Pantoprazole Sodium 40 mg Q12HR IV 05/21/24 10:00 05/25/24 07:58 40 MG Midodrine 10 mg TID@0600,1200,1800 PO 05/22/24 12:00 05/25/24 06:19 10 MG Laboratory Results Laboratory Tests 05/25/24 03:30 Chemistry Test 05/25/24 03:30 Albumin 4.1 g/dL (3.2-4.8) Calcium Level 9.8 mg/dL (8.7-10.4) Total Protein 6.6 g/dL (5.7-8.2) LFT Test 05/25/24 03:30 Alanine Aminotransferase (ALT) 27 U/L (7-40) Alkaline Phosphatase 55 U/L (46-116) Aspartate Amino Transferase (AST) 22 U/L (13-40) Total Bilirubin 0.6 mg/dL (0.2-1.0) Urinalysis Test 05/22/24 08:40 Urine Color Light-yellow (Yellow) Urine Clarity Clear (Clear) Urine pH 6.0 (5.0-9.0) Urine Specific [place] 1.022 (1.001-1.035) Urine Protein Negative (Negative) Urine Ketones Trace (Negative) Urine Blood Negative /uL (Negative) Urine Nitrite Negative (Negative) Urine Bilirubin Negative (Negative) Urine Urobilinogen Normal mg/dL (Negative) Urine Leukocyte Esterase Negative /uL (Negative) Urine RBC None seen /hpf (0 - 3) Urine WBC 1 /hpf (0 - 3) Urine Squamous Epithelial Cells None seen /hpf (<5) Urine Bacteria None seen /hpf (None Seen) Urine Glucose Normal mg/dL (Normal) Microbiology Microbiology Date/Time Source Procedure Growth Status 05/22/24 09:06 Blood Blood Culture - Preliminary NO GROWTH AFTER 72 HOURS OF INCUBATION. Resulted Labs and/or images reviewed: Labs reviewed by me, Image(s) reviewed by me Assessment/Plan Assessment/Plan Update -05/25-patient doing okay, vital signs stable. Melena is improving. Blood pressure remains low. But patient is asymptomatic. Plan for C scope prep today with C scope tomorrow # hemorrhagic shock likely; septic shock possible; self-resolving - on Levophed 4-6 mg per minute, now weaned off. Likely hemorrhagic shock. # cardiogenic shock ruleout- get echo pending. # melena, upper GI bleed - started on PPI b.i.d. IV, type and screen, large-bore IVs x2, NPO midnight, GI consult (PPI IV b.i.d., Carafate, SOB, EGD 05/23). SOB positive. EGD 05/23 with mild gastroduodenitis with hyperemia, advanced to 3rd part of duodenum with good bile drainage and no bleeding source found. GI notified of recurrent melena after EGD on 05/23.. continue melena - plan for Cscope on may. # hematemesis - see above # septic shock with leukocytosis and hypotension, resolved- sepsis unlikely. source could likely be GI. For now will continue with antibiotics IV. # bilateral lower extremity edema - patient has shortness of breath dyspnea on exertion bibasilar rales, lower extremity edema-NYHA 3-4. Risk of heart failure, we will get echo when patient is stabilized with a GI bleed. #pulmonary nodules on CT abdomen have picked up some pulmonary nodules, can be worked up outpatient CT chest without nodules (likely atelectasis?) # syncopal episode-likely from GI hemorrhage and hypotension-CT head negative for any intracranial hemorrhage # head trauma due to syncope CT head negative for acute intracranial hemorrhage or abnormalities # type 2 diabetes mild scale SSI and Accu-Cheks a.c. HS Diet clear liquid diet + golyte prep and NPO MN GI prophylaxis PPI IV b.i.d. DVT prophylaxis-SCDs only, no chemical DVT prophylaxis due to bleed Med tele Full code Plan discussed with: Patient Date of Service: May 25, 2024 Billing Provider: DARREL KNIGHT MD Common Visit Codes: [id number] INP/OBS CARE(HIGH) DARREL KNIGHT MD May 25, 2024 09:30
[2024-05-25] MEDS: D5W/SOD CHL 0.45% 1,000 ML IV SCH ×2 (13:25→17:15)
--- NOTE | 2024-05-25 17:10 | DVHPN2 ---
Progress Note - Dictate Date Seen: May 25, 2024 Medical Necessity Reason Pt with a Central, PICC or Fol: No Subjective No new complaints Patient had three bowel movements today thank you He denies use of aspirin or Pepto-Bismol Tolerating clear liquid diet H&H is fairly stable at 11.1 Stool for occult blood was negative but repeat was positive Patient is having periods of hypotension requiring intermittent pressors There was concern for possible underlying CHF and an echocardiogram is pending vital signs Vital Sign Date Time Temp Pulse Resp B/P (MAP) Pulse Ox O2 Delivery O2 Flow Rate FiO2 05/25/24 16:57 98.0 77 18 123/78 (93) 93 98.0 05/25/24 08:00 Room Air* 0 21 Total Intake and Output 05/24/24 05/24/24 05/25/24 15:00 23:00 07:00 Intake Total 1250 ml 1300 ml 450 ml Balance 1250 ml 1300 ml 450 ml medications Current Medications Medications Dose Ordered Sig/Herbert Route Start Time Stop Time Status Last Admin Dose Admin Acetaminophen/ Hydrocodone Bitart 1 tab Q4HP PRN PO 05/21/24 06:45 Ondansetron HCl 4 mg Q4HP PRN IV 05/21/24 06:45 Acetaminophen 650 mg Q6HP PRN PO 05/21/24 06:45 05/24/24 09:20 650 MG Morphine Sulfate 2 mg Q4HPRN PRN IV 05/21/24 06:45 Metronidazole 100 ml @ 100 mls/hr Q8H IV 05/21/24 16:00 05/25/24 15:21 100 MLS/HR Levofloxacin/ Dextrose 150 ml @ 100 mls/hr DAILY IV 05/21/24 10:00 Hold 05/24/24 10:39 100 MLS/HR Pantoprazole Sodium 40 mg Q12HR IV 05/21/24 10:00 05/25/24 07:58 40 MG Midodrine 10 mg TID@0600,1200,1800 PO 05/22/24 12:00 05/25/24 11:01 10 MG Dextrose/Sodium Chloride 1,000 ml @ 40 mls/hr Q24H IV 05/25/24 11:30 05/25/24 13:25 40 MLS/HR objective GEN: Healthy appearing, well-developed, NAD. Obese patient individual HEENT: NC/AT; MMM. CV: RRR, no m/r/g. LUNGS: CTAB, no w/r/c. ABD: Soft, NT/ND, NBS, no masses or organomegaly. EXT: skin Warm, well perfused. no rashes. No clubbing, cyanosis, or edema. NEURO: Ambulating with no limitations. No focal deficits. laboratory and microbiology Laboratory Tests 05/25/24 03:30 Test 05/25/24 03:30 Range/Units Serum Glucose 95 74-106 mg/dL Problems(with codes): (1) Abnormal finding on GI tract imaging (2) Near syncope (3) Melena (4) Hematemesis (5) GI bleed (6) Hypotension Prognosis Plan Patient is awaiting an echocardiogram Consider carotid ultrasound Patient will get a undergo bowel prep today I will schedule him for a colonoscopy tomorrow If colonoscopy is negative then we can order a Meckel's scan ( nuclear medicine ) Monitor labs Dietary Evaluation Review Recommendations by RD: Dietary education by RD Comments: 1) Advance to full liquid diet and ultimately CCHO 60g diet when medically feasible. 2) Continue to monitor PO intake and stool color. 3) Consider GI consult. 4) Refer to outpatient RD/CDCES for DM and weight loss education. Expected Outcomes/Goals: 1) diet to advance 2) appetite and labs to improve 3) continue plan of care 4) f/u in 2-3 days Plan discussed with: Patient, Other (Nurse) CC Plasma Assessment Blood Product Administration S: [id number] MERYL DURAN MD May 25, 2024 17:10
[2024-05-25] MEDS: GOLYTELY 4L KIT PO ONE (17:28)
[2024-05-25] MEDS: ACCU-CHEK COMFORT CURVE STRIP VI SCH (21:42)
[2024-05-26] VITALS (9 sets, daily range): BP systolic 102–139; BP diastolic 62–84; PULSE 58–95; RESP 17–18; TEMP 97.6–98.6; O2SAT 93–97
[2024-05-26 05:15] LABS: Basophils # (auto) 0 10 ^3/uL (0-0.2); Basophils % (auto) 0.3 % (0.0-2.0); Eosinophils # (auto) 0.1 10 ^3/uL (0-0.8); Eosinophils % (auto) 0.9 % (0.0-7.0); Hematocrit 31.7 % (41.0-53.0); Hemoglobin 10.5 g/dL (13.5-17.5); Lymphocytes # (auto) 1.8 10 ^3/uL (0.4-5.4); Lymphocytes % (auto) 22.2 % (10.0-50.0); Mean Corpuscular Hemoglobin 28.3 pg (28.0-32.0); Mean Corpuscular Hgb Conc. 33.2 g/dL (32.0-36.0); Mean Corpuscular Volume 85.2 fL (80.0-100.0); Monocytes # (auto) 0.8 10 ^3/uL (0-1.3); Monocytes % (auto) 9.4 % (0.0-12.0); Neutrophils # (auto) 5.4 10 ^3/uL (1.6-8.6); Neutrophils % (auto) 67.2 % (37.0-80.0); Nucleated Red Blood Cells % 0.1 %; Platelet Count (auto) 238 10^3/uL (140-450); Red Blood Cells 3.72 10^6/uL (4.5-5.90); Red Cell Distribution Width 14.9 % (11.8-14.3)
[2024-05-26] MEDS: MAGNESIUM CITRATE SOLUTION 300 ML BTL PO ONE (05:28)
[2024-05-26] MEDS: GOLYTELY 4L KIT PO ONE (05:29)
[2024-05-26 05:36] LABS: Alanine Aminotransferase 27 U/L (7-40); Albumin 3.9 g/dL (3.2-4.8); Alkaline Phosphatase 53 U/L (46-116); Anion Gap 6 (5-15); Aspartate Aminotransferase 21 U/L (13-40); BUN/Creatinine Ratio 7.3 (10.0-20.0); Bilirubin, Total 0.5 mg/dL (0.2-1.0); Calcium 9.8 mg/dL (8.7-10.4); Carbon Dioxide 27 mmol/L (20-31); Glucose 100 mg/dL (74-106); Sodium 141 mmol/L (136-145); Total Protein 6.3 g/dL (5.7-8.2)
[2024-05-26 06:10] LABS: Blood Urea Nitrogen 6 mg/dL (9-23); Chloride 108 mmol/L (98-107); Potassium 3.4 mmol/L (3.5-5.1)
--- NOTE | 2024-05-26 08:16 | DVHSR ---
APPROVED REPORT EXAM: Two-dimensional and M-mode echocardiogram with Doppler and color Doppler. Blood Pressure: 121/58 mmHg INDICATION Hypotesion recurrent, card etiology RISK FACTORS Height: 62, Weight: 252 DIMENSIONS LVDd5.6 (3.8-5.7cm)LA (2D) (1.9-4.0cm)Aortic Root4.1 (2.0-3.7cm) LVDs3.8 (2.5-4.0cm)LA (MM) (1.9-4.0cm)Aortic Cusp Exc2.1 (1.5-2.0cm) EF (%) 60.0 (55-70%)Rt. Atrium4.7 (1.9-4.0cm)Asc. Aorta cm IVSd1.0 (0.7-1.1cm)RV (D) (1.8-2.4cm) PWd1.1 (0.7-1.1cm) Mitral Valve MitralMitral Stenosis E wave0.84m/sMV Mean GR.mmHg A wave0.81m/sMV Peak GR.mmHg E/A ratio1.02D MVAcm2 DECEL [id number] 1/2 [id number] IVRTmsDop MVA2.98cm2 Aortic Valve Aortic ValveAortic Stenosis V11.29m/Peggy Mean GR.5mmHg V21.57m/Peggy Peak GR.10mmHg LVOT Diameter2.2 (1.8-2.4cm)Doppler AVA3.12cm2 Pulmonic Valve V20.86m/s LEFT VENTRICLE Normal left ventricular size. Left ventricular wall thickness is normal. Ejection fraction is mario l and is estimated at 55-60%. There is no regional wall motion abnormalities. Diastolic function is indeterminate. E to E prime ratio is in the normal range. RIGHT VENTRICLE The right ventricle is mildly dilated in size. Right ventricular systolic function is normal. ATRIA Both atria are of normal size. MITRAL VALVE Normal structure and function. No significant mitral regurgitation. PULMONIC VALVE Likely normal. TRICUSPID VALVE Normal structure and function. There is trace tricuspid regurgitation. PA systolic pressure could n ot be estimated. AORTIC VALVE Normal structure and function. GREAT VESSELS Aortic root is mildly dilated in size and measures 4.1 cm at the level of the sinuses of Valsalva. T he proximal ascending aorta is not well visualized. PERICARDIAL EFFUSION There is no pericardial effusion. IVC is of normal size and collapses normally with inspiration. Conclusion Normal left ventricular size and systolic function. Ejection fraction is estimated at 55-60%. Mildly dilated right ventricular chamber size with normal systolic function. No significant valvular disease. PA systolic pressure is not adequately estimated. No pericardial effusion.
[2024-05-26] MEDS ORDERED: MIDAZOLAM HCL 5 MG/ML-1ML VIAL ONE (10:06)
[2024-05-26] MEDS ORDERED: SODIUM CHLORIDE LOCK 10 ML ONE (10:06)
[2024-05-26] MEDS ORDERED: diphenhdrAMINE HCL 50 MG/1 ML VL ONE (10:07)
[2024-05-26] MEDS ORDERED: fentaNYL CITRATE 100 MCG/2 ML VL ONE (10:07)
[2024-05-26] MEDS ORDERED: PROPOFOL 10 MG/ML 20 ML IV ONE (12:16)
[2024-05-26] MEDS ORDERED: ONDANSETRON HCL 4 MG/2 ML VIAL ONE (12:26)
--- NOTE | 2024-05-26 12:42 | DVHOP2 ---
Operative Report DATE OF OPERATION: 05/26/24 PROCEDURE: Colonoscopy with cold biopsy PREOPERATIVE INDICATION: The patient is a 54 -year-old male undergoing colonoscopy for evaluation of recurrent GI bleeding and melena POSTOPERATIVE DIAGNOSES: 1. 1.5-2 cm area of aberrant hyperplastic type polypoid growth just above the anorectum from which multiple biopsies were obtained 2. Trace internal hemorrhoids otherwise essentially completely normal colonoscopy examination up to the cecum and ileocecal valve PROCEDURE PERFORMED BY: Meryl Orosco M.D. SCOPE: Olympus videocolonoscope. ASA CLASS: 3. PREOPERATIVE MEDICATIONS: Dr. Uma Lobato PROCEDURE IN DETAIL: After obtaining an informed consent, the patient was placed on left lateral decubitus position. He was then sedated with the above medications. A rectal examination was performed that was normal. The colonoscope was then passed through the anus into the rectosigmoid and through the descending, transverse, and ascending colon up to the cecum with visualization of the appendiceal orifice, base of the cecum and the ileocecal valve. The colonoscope was then withdrawn. The distal 2-3 cm of the terminal ileum were normal but deep cannulation could not be obtained There was mild colonic wall edema. There was a bluish hue outside the cecum suggestive of a possible high riding cecum. No masses were seen there was no colitis. There was no clear-cut diverticular disease or polyps noted. On retroflexion he had trace internal hemorrhoids On retroflexion he was noted to have a 1.5-2 cm aberrant hyperplastic type multi lobe polypoid growth from which multiple biopsies were obtained The patient tolerated the procedure well without difficulty. WITHDRAWAL TIME: 11 minute QUALITY OF THE PREP: [place] Bowel Prep score: 9. COMPLICATIONS : None SPECIMENS: Rectal evident hyperplastic type polypoid growth DISPOSITION: Transfer back to the floor Stable PLAN: 1. Repeat colonoscopy base on biopsy possibly in 2-3 years 2. Resume full liquid diet 3. Get small-bowel follow-through x-ray to rule out any small bowel pathology 4. I recommend getting a nuclear medicine Meckel's scan to further evaluate obscure GI bleeding source 5. Outpatient follow up with me in 2-4 weeks to review results and discuss further management MERYL OROSCO MD May 26, 2024 12:42
[2024-05-26] MEDS: READI-CAT 2 (BARIUM SULF)(VANILLA SMOOTHIE) 450ML ONE (14:13)
[2024-05-26] MEDS ORDERED: EZ PAQUE SUSP 12OZ BTL ONE (15:16)
--- NOTE | 2024-05-26 17:42 | DVH ---
Procedure: XY SMALL BOWEL SERIES-W BARIUM Reason for study/Clinical History: GI bleeding obscure Comparison Study: None available at time of dictation. Technique: Single contrast small bowel series performed. FINDINGS/IMPRESSION: Initial propellant assembler view of the abdomen and pelvis appears demonstrates no acute process. Contrast is identified within the colon by 15 minute. This represents a normal small bowel transit t clark. No abnormal findings identified.
--- NOTE | 2024-05-26 23:23 | DVHPN2 ---
Subjective Update - 05/26 patient doing well this a.m., tolerated GoLYTELY colonoscopy prep well. Waiting for colonoscopy this a.m.. After colonoscopy doing well, colonoscopy was without any significant findings or bleeding. Plan for Meckel's scan and small-bowel follow-through. GI following. -05/25-patient doing okay, vital signs stable. Melena is improving. Blood pressure remains low. But patient is asymptomatic. Plan for C scope prep today with C scope tomorrow -05/23 patient is stable but continues to have small melanotic stools frequently. GI notified. Plan for colonoscopy on coming . We will keep patient on clear liquid diet. Patient has no abdominal pain. No chest pain. No nausea or vomiting. Tolerating CLD. Amenable to plan -05/23--patient is status post EGD today, under scope advanced to duodenum with no identified sources of bleeding. Patient returns to room with clear liquid diet. Upon returning patient's starts to have another bloody bowel movement confirmed by nursing staff. Stool occult blood sent again. No colonoscopy planned for current plan. Continue admission to ensure bleeding stops. Patient did also have another hypotensive episode after the bowel movement, patient was fluid bolused and legs raised leading to improvement of blood pressure. Patient has some lightheadedness. Denies shortness of breath, abdominal pain, chest pain, syncope. Continue midodrine for now. -05/22-patient continues to have dark stools. Hemoglobin stable. Able to wean off Levophed. Can downgrade to tele. GI to follow up today. Patient denies any shortness of breath, chest pain, abdominal pain. No further presyncope/syncopal symptoms. -05/21 patient admitted today this a.m.. Still on levo. Pressure is improving. Patient is very hesitant on getting a central line. We will try to wean off levo and give more fluids. Still having dark melanotic stools. Reviewed: H&P Changes from previous H/P or p: No Changes General: Per HPI Objective Vitals Vital Signs Date Time Temp Pulse Resp B/P (MAP) Pulse Ox O2 Delivery O2 Flow Rate FiO2 05/26/24 21:00 98.4 77 17 123/74 (90) 97 98.4 05/26/24 12:45 Room Air 05/26/24 12:37 10.0 05/26/24 08:00 21 Intake/Output Intake and Output 05/26/24 07:00 Intake Total 4350 ml Balance 4350 ml Intake Oral 4050 ml IV Total 300 ml # Voids 7 # Bowel Movements 7 Exam GEN: Healthy appearing, well-developed, NAD. Obese patient individual HEENT: NC/AT; MMM. CV: RRR, no m/r/g. LUNGS: CTAB, no w/r/c. ABD: Soft, NT/ND, NBS, no masses or organomegaly. EXT: skin Warm, well perfused. no rashes. No clubbing, cyanosis, or edema. NEURO: Ambulating with no limitations. No focal deficits. Medications Current Medications Medications Dose Ordered Sig/Herbert Route Start Time Stop Time Status Last Admin Dose Admin Acetaminophen/ Hydrocodone Bitart 1 tab Q4HP PRN PO 05/21/24 06:45 Ondansetron HCl 4 mg Q4HP PRN IV 05/21/24 06:45 Acetaminophen 650 mg Q6HP PRN PO 05/21/24 06:45 05/24/24 09:20 650 MG Morphine Sulfate 2 mg Q4HPRN PRN IV 05/21/24 06:45 Metronidazole 100 ml @ 100 mls/hr Q8H IV 05/21/24 16:00 05/26/24 16:24 100 MLS/HR Levofloxacin/ Dextrose 150 ml @ 100 mls/hr DAILY IV 05/21/24 10:00 Hold 05/24/24 10:39 100 MLS/HR Pantoprazole Sodium 40 mg Q12HR IV 05/21/24 10:00 05/26/24 21:45 40 MG Midodrine 10 mg TID@0600,1200,1800 PO 05/22/24 12:00 05/26/24 18:05 10 MG Diagnostic Test (Pha) 1 strip ACHS 05/25/24 22:00 05/26/24 21:49 1 STRIP Laboratory Results Laboratory Tests 05/26/24 04:33 Chemistry Test 05/26/24 04:33 Albumin 3.9 g/dL (3.2-4.8) Calcium Level 9.8 mg/dL (8.7-10.4) Total Protein 6.3 g/dL (5.7-8.2) LFT Test 05/26/24 04:33 Alanine Aminotransferase (ALT) 27 U/L (7-40) Alkaline Phosphatase 53 U/L (46-116) Aspartate Amino Transferase (AST) 21 U/L (13-40) Total Bilirubin 0.5 mg/dL (0.2-1.0) Urinalysis Test 05/22/24 08:40 Urine Color Light-yellow (Yellow) Urine Clarity Clear (Clear) Urine pH 6.0 (5.0-9.0) Urine Specific [place] 1.022 (1.001-1.035) Urine Protein Negative (Negative) Urine Ketones Trace (Negative) Urine Blood Negative /uL (Negative) Urine Nitrite Negative (Negative) Urine Bilirubin Negative (Negative) Urine Urobilinogen Normal mg/dL (Negative) Urine Leukocyte Esterase Negative /uL (Negative) Urine RBC None seen /hpf (0 - 3) Urine WBC 1 /hpf (0 - 3) Urine Squamous Epithelial Cells None seen /hpf (<5) Urine Bacteria None seen /hpf (None Seen) Urine Glucose Normal mg/dL (Normal) Microbiology Microbiology Date/Time Source Procedure Growth Status 05/22/24 09:06 Blood Blood Culture - Preliminary NO GROWTH AFTER 72 HOURS OF INCUBATION. Resulted Labs and/or images reviewed: Labs reviewed by me, Image(s) reviewed by me Assessment/Plan Assessment/Plan Update - / patient doing well this a.m., tolerated GoLYTELY colonoscopy prep well. Waiting for colonoscopy this a.m.. After colonoscopy doing well, colonoscopy was without any significant findings or bleeding. Plan for Meckel's scan and small-bowel follow-through. GI following. # hemorrhagic shock likely; septic shock possible; resolved - off Levophed.. Likely hemorrhagic shock. # cardiogenic shock ruledout- echo is normal # melena, upper GI bleed - started on PPI b.i.d. IV, type and screen, large-bore IVs x2, NPO midnight, GI consult (PPI IV b.i.d., Carafate, SOB, EGD 05/23). SOB positive. EGD 05/23 with mild gastroduodenitis with hyperemia, advanced to 3rd part of duodenum with good bile drainage and no bleeding source found. GI notified of recurrent melena after EGD on 05/23.. continue melena, colonoscopy 1 without any signs of acute GI hemorrhage. Plan for Meckel's scan and small- bowel follow-through # hematemesis - see above # septic shock with leukocytosis and hypotension, resolved- sepsis unlikely. source could likely be GI. For now will continue with antibiotics IV. # bilateral lower extremity edema - patient has shortness of breath dyspnea on exertion bibasilar rales, lower extremity edema-NYHA 3-4. Risk of heart failure, we will get echo when patient is stabilized with a GI bleed. #pulmonary nodules on CT abdomen have picked up some pulmonary nodules, can be worked up outpatient CT chest without nodules (likely atelectasis?) # syncopal episode-likely from GI hemorrhage and hypotension-CT head negative for any intracranial hemorrhage # head trauma due to syncope CT head negative for acute intracranial hemorrhage or abnormalities # type 2 diabetes mild scale SSI and Accu-Cheks a.c. HS Diet full liquid diet GI prophylaxis PPI IV b.i.d. DVT prophylaxis-SCDs only, no chemical DVT prophylaxis due to bleed Med tele Full code Plan discussed with: Patient Date of Service: May 26, 2024 Billing Provider: DARREL KNIGHT MD Common Visit Codes: [id number] INP/OBS CARE(HIGH) DARREL KNIGHT MD May 26, 2024 23:23
[2024-05-27] VITALS (7 sets, daily range): BP systolic 109–115; BP diastolic 61–69; PULSE 74–83; RESP 16–18; TEMP 36.4; O2SAT 93–97
[2024-05-27 05:53] LABS: Basophils # (auto) 0.1 10 ^3/uL (0-0.2); Basophils % (auto) 0.9 % (0.0-2.0); Eosinophils # (auto) 0.1 10 ^3/uL (0-0.8); Eosinophils % (auto) 1.2 % (0.0-7.0); Hematocrit 31.6 % (41.0-53.0); Hemoglobin 10.6 g/dL (13.5-17.5); Lymphocytes # (auto) 1.9 10 ^3/uL (0.4-5.4); Lymphocytes % (auto) 20.2 % (10.0-50.0); Mean Corpuscular Hgb Conc. 33.6 g/dL (32.0-36.0); Mean Corpuscular Volume 86.3 fL (80.0-100.0); Monocytes # (auto) 0.9 10 ^3/uL (0-1.3); Monocytes % (auto) 9.5 % (0.0-12.0); Neutrophils # (auto) 6.3 10 ^3/uL (1.6-8.6); Neutrophils % (auto) 68.2 % (37.0-80.0); Nucleated Red Blood Cells % 0.1 %; Platelet Count (auto) 233 10^3/uL (140-450); Red Blood Cells 3.66 10^6/uL (4.5-5.90); Red Cell Distribution Width 14.9 % (11.8-14.3); White Blood Cell 9.3 10^3/uL (4.4-10.8)
[2024-05-27 06:16] LABS: Alanine Aminotransferase 27 U/L (7-40); Albumin 3.9 g/dL (3.2-4.8); Alkaline Phosphatase 59 U/L (46-116); Anion Gap 9 (5-15); Aspartate Aminotransferase 20 U/L (13-40); BUN/Creatinine Ratio 9.5 (10.0-20.0); Calcium 9.6 mg/dL (8.7-10.4); Carbon Dioxide 24 mmol/L (20-31); Glucose 91 mg/dL (74-106); Sodium 140 mmol/L (136-145)
[2024-05-27 06:17] LABS: Bilirubin, Total 0.5 mg/dL (0.2-1.0)
[2024-05-27 06:21] LABS: Blood Urea Nitrogen 8 mg/dL (9-23); Chloride 107 mmol/L (98-107)
--- NOTE | 2024-05-27 13:27 | DVHPN2 ---
Progress Note Date Seen: May 27, 2024 Resident Creating Document: MARCE CASTAÑEDA RESIDENT Has the PT tested + for MRSA If YES, has PT been informed?: No Medical Necessity Reason Pt with a Central, PICC or Fol: No Medical Necessity Reason Melena stool Hematemesis Subjective Review of Systems Talon Roland is a 54-year-old male with past medical history of diabetes who presents to the ED today for epigastric, abdominal pain, hematemesis x3, weakness, and hypotension x1 day. Patient reports that his epigastric pain is pressure-like intermittent and 7/10. Patient reports that he has been going to see his primary care physician for the last 4 years about his abdominal discomfort and has had an EGD 1.5 yrs ago that was negative ;labs and workup with no abnormal results. Patient reports that this morning he was walking to the restroom sat on the toilet and noticed that there was dark black stool coming out he suddenly felt dizzy and lightheaded. He states that he lost consciousness fell and hit his head then came to called out for his and his daughter, which then his daughter brought him to the ED. patient states that he is compliant with all his medications he also states that he is borderline diabetic. Patient denies smoking, drinking, illicit drug use, chest pain, shortness of breath, fever, chills, nausea, vomiting, and diarrhea. He denies any aspirin or NSAID use. Patient received 1 unit PRBC in the ER because of hypotension which is now resolved PN: 05/27/2024 Patient is examined at the bedside today with a white present. He is not in any acute respiratory distress on feeling much better he is status post colonoscopy yesterday finding. 1. 1.5-2 cm area of aberrant hyperplastic type polypoid growth just above the anorectum from which multiple biopsies were obtained. 2. Trace internal hemorrhoids otherwise essentially completely normal colonoscopy examination up to the cecum and ileocecal valve. He had small bowel series where also unremarkable. Patient is to have Meckel's scan however this will not be ready to light couple of days later. Patient is stable to be discharged and follow up outpatient for the Meckel's scan. His labs today show hemoglobin of 10.6 with a hematocrit of 31.6, plt: 233 and vitals is grossly unremarkable. Objective vital signs Vital Sign Date Time Temp Pulse Resp B/P (MAP) Pulse Ox O2 Delivery O2 Flow Rate FiO2 05/27/24 12:27 83 18 115/69 (84) 05/27/24 08:36 98.6 94 98.6 05/27/24 08:06 Room Air* 0 21 Total Intake and Output 05/26/24 05/26/24 05/27/24 15:00 23:00 07:00 Intake Total 125 ml 700 ml 450 ml Output Total 1200 ml Balance 125 ml -500 ml 450 ml medications Current Medications Medications Dose Ordered Sig/Herbert Route Start Time Stop Time Status Last Admin Dose Admin Acetaminophen/ Hydrocodone Bitart 1 tab Q4HP PRN PO 05/21/24 06:45 Ondansetron HCl 4 mg Q4HP PRN IV 05/21/24 06:45 Acetaminophen 650 mg Q6HP PRN PO 05/21/24 06:45 05/24/24 09:20 650 MG Morphine Sulfate 2 mg Q4HPRN PRN IV 05/21/24 06:45 Metronidazole 100 ml @ 100 mls/hr Q8H IV 05/21/24 16:00 05/27/24 07:51 100 MLS/HR Levofloxacin/ Dextrose 150 ml @ 100 mls/hr DAILY IV 05/21/24 10:00 Hold 05/24/24 10:39 100 MLS/HR Pantoprazole Sodium 40 mg Q12HR IV 05/21/24 10:00 05/27/24 10:37 40 MG Midodrine 10 mg TID@0600,1200,1800 PO 05/22/24 12:00 05/27/24 12:25 10 MG Diagnostic Test (Pha) 1 strip ACHS 05/25/24 22:00 05/27/24 11:30 1 STRIP Examination General examination- Not in acute distress HEENT: PEERLA, no acute nasal discharge Chest: S1-S2 audible, rate and rhythm regular, no murmur Lung: CTAB, no wheeze or rhonchi Abdomen: distend, BS+, tenderness, no organomegaly Musculoskeletal: no acute joint swelling or tenderness Lower extremity: no leg edema Neurological: cranial nerves intact, no acute dysarthria or dysphagia Psychiatry-- Normal mood and affect Skin- no acute rash or purpura laboratory and microbiology Laboratory Tests 05/27/24 05:15 Test 05/27/24 05:15 Range/Units Serum Glucose 91 74-106 mg/dL Microbiology Date/Time Source Procedure Growth Status 05/22/24 09:06 Blood Blood Culture - Final NO GROWTH AFTER 5 DAYS OF INCUBATION. Complete Problem List/Assessment/Plan Problem List/Assessment/Plan (1) Abnormal finding on GI tract imaging --> s/p colonoscopy 05/26/2023: 1. 1.5-2 cm area of aberrant hyperplastic type polypoid growth just above the anorectum from which multiple biopsies were obtained. 2. Trace internal hemorrhoids otherwise essentially completely normal colonoscopy examination up to the cecum and ileocecal valve. --> small bowel series where also unremarkable. --> recommend Meckel's scan (2) Near syncope (3) Melena (4) Hematemesis (5) GI bleed (6) Hypotension Plan Colonoscopy is grossly normal Meckel's scan ( nuclear medicine ) pending or it can be done outpatient Monitor labs Care discussed for more than 25 minute Case and plan discussed with Dr. Orosco Thank you for allowing us to participate in the care of this patient. Please call if you have any questions or concerns. Plan discussed with: Patient, Spouse Dietary Evaluation Review Recommendations by RD: Dietary education by RD Comments: 1) Advance to full liquid diet and ultimately CCHO 60g diet when medically feasible. 2) Continue to monitor PO intake and stool color. 3) Consider GI consult. 4) Refer to outpatient RD/CDCES for DM and weight loss education. Expected Outcomes/Goals: 1) diet to advance 2) appetite and labs to improve 3) continue plan of care 4) f/u in 2-3 days CC Plasma Assessment Blood Product Administration S: [id number] MARCE CASTAÑEDA RESIDENT May 27, 2024 13:27
[2024-05-27] MEDS ORDERED: PANT40TA2 PO (14:37)
--- NOTE | 2024-05-27 14:41 | DVHDS2 ---
Discharge Summary Date of Admission May 21, 2024 at 06:36 Date of Discharge: May 27, 2024 Labs/Diagnostic Data: Laboratory Results Test 05/27/24 05:15 05/26/24 11:09 05/23/24 11:50 05/22/24 08:40 White Blood Count 9.3 10^3/uL (4.4-10.8) Red Blood Count 3.66 10^6/uL (4.5-5.90) Hemoglobin 10.6 g/dL (13.5-17.5) Hematocrit 31.6 % (41.0-53.0) Mean Corpuscular Volume 86.3 fL (80.0-100.0) Mean Corpuscular Hemoglobin 29.0 pg (28.0-32.0) Mean Corpuscular Hemoglobin Concent 33.6 g/dL (32.0-36.0) Red Cell Distribution Width 14.9 % (11.8-14.3) Platelet Count 233 10^3/uL (140-450) Mean Platelet Volume 7.6 fL (6.9-10.8) Neutrophils (%) (Auto) 68.2 % (37.0-80.0) Lymphocytes (%) (Auto) 20.2 % (10.0-50.0) Monocytes (%) (Auto) 9.5 % (0.0-12.0) Eosinophils (%) (Auto) 1.2 % (0.0-7.0) Basophils (%) (Auto) 0.9 % (0.0-2.0) Neutrophils # (Auto) 6.3 10 ^3/uL (1.6-8.6) Lymphocytes # (Auto) 1.9 10 ^3/uL (0.4-5.4) Monocytes # (Auto) 0.9 10 ^3/uL (0-1.3) Eosinophils # (Auto) 0.1 10 ^3/uL (0-0.8) Basophils # (Auto) 0.1 10 ^3/uL (0-0.2) Nucleated Red Blood Cells 0.1 % Sodium Level 140 mmol/L (136-145) Potassium Level 4.0 mmol/L (3.5-5.1) Chloride Level 107 mmol/L (98-107) Carbon Dioxide Level 24 mmol/L (20-31) Anion Gap 9 (5-15) Blood Urea Nitrogen 8 mg/dL (9-23) Creatinine 0.84 mg/dL (0.700-1.30) Glomerular Filtration Rate Calc 104 mL/min (>90) BUN/Creatinine Ratio 9.5 (10.0-20.0) Serum Glucose 91 mg/dL (74-106) Calcium Level 9.6 mg/dL (8.7-10.4) Total Bilirubin 0.5 mg/dL (0.2-1.0) Aspartate Amino Transferase (AST) 20 U/L (13-40) Alanine Aminotransferase (ALT) 27 U/L (7-40) Alkaline Phosphatase 59 U/L (46-116) Total Protein 6.0 g/dL (5.7-8.2) Albumin 3.9 g/dL (3.2-4.8) POC Glucose 98 mg/dl (70-106) Stool Occult Blood Positive (Negative) Stool Occult Blood Sample #3 (Negative) Urine Color Light-yellow (Yellow) Urine Clarity Clear (Clear) Urine pH 6.0 (5.0-9.0) Urine Specific [place] 1.022 (1.001-1.035) Urine Protein Negative (Negative) Urine Ketones Trace (Negative) Urine Blood Negative /uL (Negative) Urine Nitrite Negative (Negative) Urine Bilirubin Negative (Negative) Urine Urobilinogen Normal mg/dL (Negative) Urine Leukocyte Esterase Negative /uL (Negative) Urine RBC None seen /hpf (0 - 3) Urine WBC 1 /hpf (0 - 3) Urine Squamous Epithelial Cells None seen /hpf (<5) Urine Bacteria None seen /hpf (None Seen) Urine Glucose Normal mg/dL (Normal) Urine Opiates Screen Neg (NEGATIVE) Urine Fentanyl Screen Neg (NEGATIVE) Urine Barbiturates Screen Neg (NEGATIVE) Urine Phencyclidine Screen Neg (NEGATIVE) Urine Amphetamines Screen Neg (NEGATIVE) Urine Benzodiazepines Screen Neg (NEGATIVE) Urine Cocaine Screen Neg (NEGATIVE) Urine Cannabinoids Screen Neg (NEGATIVE) Test 05/21/24 10:54 05/21/24 04:50 Lactic Acid Level 1.6 mmol/L (0.4-2.0) Prothrombin Time 12.0 sec (9.3-11.8) Prothrombin Time INR 1.14 (0.9-1.15) Activated Partial Thromboplast Time 21.7 SEC (24.5-34.5) Hemoglobin A1c 5.5 % A1C (<5.7) Lipase 30 U/L (12-53) Other Laboratory Tests 05/27/24 05:15 Brief Hx & Hospital Course: HPI: 54y/o M w PMHx of DM in ED with c/o epigastric, abdominal pain, hematemesis x3, weakness, and hypotension x1 day. Patient reports that his epigastric pain is pressure-like intermittent and 7/10. Patient reports that he has been going to see his primary care physician for the last 4 years about his abdominal discomfort and has had an EGD labs and workup with no abnormal results. Patient reports that this morning he was walking to the restroom sat on the toilet and noticed that there was dark black stool coming out he suddenly felt dizzy and lightheaded. He states that he lost consciousness fell and hit his head then came to called out for his and his daughter Patient presented without anemia requiring transfusion, CT head negative for acute bleed, CT abdomen pelvis with contrast IV not able to identify any source of acute bleed. CT chest without any nodules. Started on PPI b.i.d. IV, type and screen, large-bore IVs x2, NPO midnight, GI consult (PPI IV b.i.d., Carafate, SOB, EGD 05/23). SOB positive. EGD 05/23 with mild gastroduodenitis with hyperemia, advanced to 3rd part of duodenum with good bile drainage and no bleeding source found. GI notified of recurrent melena after EGD on 05/23.. continue melena, colonoscopy 1/2 without any signs of acute GI hemorrhage. Small-bowel follow-through with good timely passage contrast into colon, normal study with barium swallow. Plan for outpatient Meckel's scan and close follow up with GI. Patient is stable for discharge with plan below. Diagnosis: melena/Upper gi bleed, resolved, no source found; hematemesis resolved; hemorrhagic shock resolved; syncope likely due to anemia/GI hemorrhage; heart failure cardiac shock ruled out; bilateral pitting edema; coloring nodules ruled out with chest CT; type 2 diabetes; Discharge plan - take protonix 40mg daily [id number] - full liquid diet x2 week - f/u with GI for GI bleed work-up, with plan for outpatient meckels scan - f/u in [place] clinic to repeat Hb CBC level and symptom check - f/u with PCP for discharge review - resume other home meds. Return to ED if large melena returns Visitation and planning required 35 minutes Condition at Discharge: Fair Final Diagnosis/Problems List melena/Upper gi bleed, resolved, no source found; hematemesis resolved; hemorrhagic shock resolved; syncope likely due to anemia/GI hemorrhage; heart failure cardiac shock ruled out; bilateral pitting edema; coloring nodules ruled out with chest CT; type 2 diabetes; Discharge Disposition: Home Discharge Instruct/Medications Diet: See Comment Diet comment: FLD Activity: No Restrictions, As Tolerated Follow Up/Referral: PCP, GI, Medications: as below Discharge Statement: "Patient was advised to return to the ER or call 911 if any headaches, dizziness, shortness of breath, chest pain, abdominal pain, bleeding, fevers, or worsening of medical condition. Patient was counseled about treatment plan, medications, possible side effects, patientverbalized understanding. All questions were answered to the best of my ability. This discharge took greater then 30 minutes in planning, reviewing documentation, counseling the patient, and discussing with other team members." ASSESSMENT ASSESSMENT Assessment melena/Upper gi bleed, resolved, no source found; hematemesis resolved; hemorrhagic shock resolved; syncope likely due to anemia/GI hemorrhage; heart failure cardiac shock ruled out; bilateral pitting edema; coloring nodules ruled out with chest CT; type 2 diabetes; Date of Service: May 27, 2024 Billing Provider: DARREL KNIGHT MD Common Visit Codes: [id number] INP/OBS CARE(HIGH) DARREL KNIGHT MD May 27, 2024 14:41
[2024-05-27] MEDS ORDERED: KETAMINE 50mg/ML 1ml syringe IV ONE (15:24)
--- NOTE | 2024-06-01 06:59 | ECG ---
[facility] Test Date: 2024-05-21 Test Time: 04:39:23 Pat Name: MARY KAHN Department: ER Room: [facility]5T A Gender: M [employer]: AM : 1970 Requested By: DONIS MUÑOZ Order Number: [id number] Reading MD: Rupesh Redd Measurements Intervals [place] Rate: 81 P: 52 MA: 159 QRS: -77 QRSD: 102 T: 20 QT: 386 QTc: 448 Interpretive Statements Sinus rhythm Incomplete RBBB and LAFB Low voltage, precordial leads Abnormal R-wave progression, late transition Baseline wander in lead(s) V4,V6 Electronically Signed On 06-01-2024 19:48:07 PST by Rupesh Redd Please click the below link to view image of tracing.
== END 2024-05-27 15:25 | disposition home or self-care (01) | DRG 241 ==
LOC: ER 04:14 → OVERFLOW 06:36 → TELE-WESTW 06:40 → WEST WING 05-22 16:18 → TELE-WESTW 05-22 23:37
PROVIDERS: ADMIT Student in an Organized Health Care Education/Training Program; ATTEND Student in an Organized Health Care Education/Training Program
PROC: 30233N1 Transfusion of Nonautologous Red Blood Cells into Peripheral Vein, Percutaneous Approach (ICD-10-PCS; 2024-05-21)
PROC: 0DB68ZX Excision of Stomach, Via Natural or Artificial Opening Endoscopic, Diagnostic (ICD-10-PCS; 2024-05-23)
PROC: 0DB48ZX Excision of Esophagogastric Junction, Via Natural or Artificial Opening Endoscopic, Diagnostic (ICD-10-PCS; 2024-05-23)
PROC: 0DB98ZX Excision of Duodenum, Via Natural or Artificial Opening Endoscopic, Diagnostic (ICD-10-PCS; principal; 2024-05-23 08:13)
PROC: 0DBP8ZX Excision of Rectum, Via Natural or Artificial Opening Endoscopic, Diagnostic (ICD-10-PCS; 2024-05-26)
DX: K29.91 Gastroduodenitis, unspecified, with bleeding (principal); R57.8 Other shock; S09.8XXA Other specified injuries of head, initial encounter; D62 Acute posthemorrhagic anemia; E11.9 Type 2 diabetes mellitus without complications; K31.89 Other diseases of stomach and duodenum; J98.11 Atelectasis; E66.01 Morbid (severe) obesity due to excess calories; W18.39XA Other fall on same level, initial encounter; Y93.89 Activity, other specified; Y92.89 Other specified places as the place of occurrence of the external cause; Y99.8 Other external cause status; Z68.41 Body mass index [BMI] 40.0-44.9, adult
CPT/HCPCS: 36415; 70450; 71045; 71260; 74177; 74250; 80053; 80307; 81001; 82270; 82962; 83036; 83605; 83690; 85014; 85018; 85025; 85610; 85730; 86850; 86900; 86901; 86920; 87040; 93005; 93306; 96365; 96375; 99291; G0378; J1815; J1956; J2250; J2405; J2470; J2704; J3490